=== PATIENT | male | born 1940 | race Caucasian/White ===

== ENCOUNTER 2016-04-14 11:27 | Inpatient (IN) | payer MEDICARE ==
[2016-04-14] MEDS ORDERED: IPRATROPIUM-ALBUTEROL 3 ML NEB INHALATION STA (12:41)
[2016-04-14 13:02] LABS: Basophils % (A) 0 %; CH 32.4; CHCM 34.4; Eosinophils % (A) 0 %; HCT 41.7 % (39.0-53.0); HDW 2.87; HGB 14.2 gm/dL (13.0-17.5); Luc # (Auto) 0.13; Luc % (Auto) 1; Lymphocytes # (A) 0.5 k/uL (1.0-4.8); Lymphocytes % (A) 3 %; MCH 32.2 pg (25.0-35.0); MCV 94.8 fL (80.0-100.0); Mean Platelet Volume 7.1; Monocytes # (A) 0.6 k/uL (0-1.0); Monocytes % (A) 4 %; Neutrophils # (A) 14.6 k/uL (1.3-7.7); Neutrophils % (A) 92 %; RDW 14.3 % (11.5-15.5); WBC 15.9 k/uL (3.8-10.6); WBC (Perox) 16.64
[2016-04-14 13:11] LABS: INR 0.9 (<1.1); Prothrombin Time 9.6 sec (9.0-12.0)
[2016-04-14 13:14] LABS: ALT 47 U/L (21-72); AST 47 U/L (17-59); Alkaline Phosphatase 76 U/L (38-126); Anion Gap 15 mmol/L; Blood Urea Nitrogen 29 mg/dL (9-20); Calcium 9.5 mg/dL (8.4-10.2); Carbon Dioxide 26 mmol/L (22-30); Chloride 107 mmol/L (98-107); Glucose 133 mg/dL (74-99); Magnesium 2.4 mg/dL (1.6-2.3); Non-African American GFR(MDRD) 54 (>60 ml/min/1.73 sqM); Potassium 3.7 mmol/L (3.5-5.1); Sodium 148 mmol/L (137-145); Total Bilirubin 0.4 mg/dL (0.2-1.3)
[2016-04-14] MEDS ORDERED: DEXAMETHASONE SOD PHOSPHATE 10 MG/ML 1 ML VIAL IV STA (13:15)
--- NOTE | 2016-04-14 13:15 | ED ---
General Adult HPI - General Chief complaint: Shortness of Breath Stated complaint: ROGER Time Seen by Provider: 04/14/16 12:37 Source: patient, RN notes reviewed Mode of arrival: ambulatory - History of Present Illness Initial comments: Patient 76-year-old male who presents emergency room today with chief complaint of increased cough congestion over the last 5 days. Patient does admit to positive sputum production. Doesn't that he follow-up with family doctor who stated that he thought he should be admitted. He states he thought it is feeling better at home but symptoms been increasing again over the last day. Patient does admit that he tries breathing treatments at home with little relief the symptoms at this time. She is not on any oxygen. Patient denies any other complaints or symptoms currently. Patient denies any recent fever, chills, shortness of breath, chest pain, back pain, abdominal pain, nausea or vomiting, numbness or tingling, dysuria or hematuria, constipation or diarrhea, headaches or visual changes, or any other complaints. - Related Data Home Medications Medication Instructions Recorded Confirmed Levothyroxine Sodium [Synthroid] 50 mcg PO DAILY 01/11/14 04/14/16 Simvastatin [Zocor] 5 mg PO DAILY 01/11/14 04/14/16 Terazosin HCl [Hytrin] 10 mg PO HS 01/11/14 04/14/16 amLODIPine BESYLATE [Norvasc] 10 mg PO DAILY 01/11/14 04/14/16 Hydrocodone/Acetaminophen [[place] 1 tab PO Q6HR PRN 01/25/14 04/14/16 5-325] Albuterol Inhaler [Ventolin Hfa 1 - 2 puff INHALATION RT-Q6H PRN 04/14/16 Inhaler] Amoxic-Pot Clav 875-125Mg 1 tab PO Q12HR 04/14/16 04/14/16 [Augmentin 875-125] Budesonide/Formoterol Fumarate 2 puff INHALATION RT-BID 04/14/16 04/14/16 [Symbicort 160-4.5 Mcg Inhaler] Finasteride [Proscar] 5 mg PO DAILY 04/14/16 04/14/16 Ipratropium-Albuterol Nebulize 3 ml INHALATION RT-QID PRN 01/01/17 01/01/17 [Duoneb 0.5 mg-3 mg/3 ml Soln] Methocarbamol [Robaxin] 1,000 mg PO QID PRN 04/14/16 04/14/16 Tiotropium 18 Mcg/Puff [Spiriva] 1 cap INHALATION RT-DAILY 04/14/16 04/14/16 Allergies Allergy/AdvReac Type Severity Reaction Status Date / Time methylprednisolone sodium Allergy Rash/Hives Verified 04/14/16 12:31 succinate [From Solu-Medrol] prednisone Allergy Rash/Hives Verified 04/14/16 12:31 Sulfa (Sulfonamide Allergy Rash/Hives Verified 04/14/16 12:31 Antibiotics) Review of Systems ROS Statement: Those systems with pertinent positive or pertinent negative responses have been documented in the HPI. ROS Other: All systems not noted in ROS Statement are negative. Past Medical History Past Medical History: Cancer, COPD, Hypertension, Thyroid Disorder Additional Past Medical History / Comment(s): LARYNX CANCER-HAD RADIATION TREATMENT, EMPHYSEMA History of Any Multi-Drug Resistant Organisms: None Reported Past Surgical History: Appendectomy, Back Surgery Additional Past Surgical History / Comment(s): SKIN BIOSPY Past Anesthesia/Blood Transfusion Reactions: No Reported Reaction Past Psychological History: No Psychological Hx Reported Additional Psychological History / Comment(s): , lives in the family home with his daughter and her 3 children. He is retired from [employer]. He apparently is still an ongoing tobacco user approximately half pack per day which is decreased from 3 packs per day when he was younger. Denies a history of excessive alcohol use or recreational drug use. 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 No one in the family home is currently ill. There are no pets in the home. Smoking Status: Current every day smoker Past Alcohol Use History: Daily Past Drug Use History: None Reported - Past Family History Father Additional Family Medical History / Comment(s): at a young age from a hreat attack Mother Additional Family Medical History / Comment(s): had heart disease Sister(s) Family Medical History: Cancer General Exam - General Exam Comments Initial Comments: General: The patient is awake and alert, in no distress, and does not appear acutely ill. Eye: Pupils are equal, round and reactive to light, extra-ocular movements are intact. No nystagmus. There is normal conjunctiva bilaterally. No signs of icterus. Ears, nose, mouth and throat: There are moist mucous membranes and no oral lesions. Neck: The neck is supple, there is no tenderness or JVD. Cardiovascular: There is a regular rate and rhythm. No murmur, rub or gallop is appreciated. Respiratory: Decreased sounds with expiratory wheeze bilaterally. respirations are non-labored, breath sounds are equal. No stridor, rales, or rhonchi. Gastrointestinal: Soft, non-distended, non-tender abdomen without masses or organomegaly noted. There is no rebound or guarding present. No CVA tenderness. Bowel sounds are unremarkable. Musculoskeletal: Normal ROM, no tenderness. Strength 5/5. Sensation intact. Pulses equal bilaterally 2+. Neurological: A&O x 3. CN II-XII intact, There are no obvious motor or sensory deficits. Coordination appears grossly intact. Speech is normal. Skin: Skin is warm and dry and no rashes or lesions are noted. Psychiatric: Cooperative, appropriate mood & affect, normal judgment. Course Vital Signs 04/14/16 04/14/16 04/14/16 12:05 12:41 12:48 Temperature 98.3 F Pulse Rate 92 91 94 Respiratory 18 20 Rate Blood Pressure 134/63 154/67 O2 Sat by Pulse 96 97 Oximetry 04/14/16 04/14/16 04/14/16 13:00 13:43 14:50 Temperature 97.3 F L Pulse Rate 94 86 88 Respiratory 18 18 Rate Blood Pressure 139/60 140/63 O2 Sat by Pulse 97 94 L Oximetry EKG Findings - EKG Comments: EKG Findings:: EKG performed at 1228: A 12-lead EKG was performed and interpreted by me as showing the following: Rate is 92, and rhythm is normal sinus. There are normal QRS complexes and normal R-wave progression. ST segments have no elevation or depression, and OR segments appear normal. Medical Decision Making - Medical Decision Making Patient reexamined at this time shows no signs of distress. Does admit that he feels better after breathing treatment. Pulse ox 92% on room air on arrival. Patient currently on 2 L of oxygen with saturation of 96%. Patient chest x-ray reviewed no pneumonia. Does have 15,000 white count. He admitted to the hospital for continued steroids and breathing treatments. - Lab Data Result diagrams: 04/14/16 12:40 04/14/16 12:40 Lab Results 04/14/16 04/14/16 04/14/16 Range/Units 12:40 12:40 12:40 WBC 15.9 H (3.8-10.6) k/uL RBC 4.40 (4.30-5.90) m/uL Hgb 14.2 (13.0-17.5) gm/dL Hct 41.7 (39.0-53.0) % MCV 94.8 (80.0-100.0) fL MCH 32.2 (25.0-35.0) pg MCHC 34.0 (31.0-37.0) g/dL RDW 14.3 (11.5-15.5) % Plt Count 217 (150-450) k/uL Neutrophils % 92 % Lymphocytes % 3 % Monocytes % 4 % Eosinophils % 0 % Basophils % 0 % Neutrophils # 14.6 H (1.3-7.7) k/uL Lymphocytes # 0.5 L (1.0-4.8) k/uL Monocytes # 0.6 (0-1.0) k/uL Eosinophils # 0.0 (0-0.7) k/uL Basophils # 0.0 (0-0.2) k/uL PT (9.0-12.0) sec INR (<1.1) APTT (22.0-30.0) sec Sodium 148 H (137-145) mmol/L Potassium 3.7 (3.5-5.1) mmol/L Chloride 107 (98-107) mmol/L Carbon Dioxide 26 (22-30) mmol/L Anion Gap 15 mmol/L BUN 29 H (9-20) mg/dL Creatinine 1.30 H (0.66-1.25) mg/dL Est GFR (MDRD) Af Amer >60 (>60 ml/min/1.73 sqM) Est GFR (MDRD) Non-Af 54 (>60 ml/min/1.73 sqM) Glucose 133 H (74-99) mg/dL Plasma Lactic Acid Joseph (0.7-2.0) mmol/L Calcium 9.5 (8.4-10.2) mg/dL Magnesium 2.4 H (1.6-2.3) mg/dL Total Bilirubin 0.4 (0.2-1.3) mg/dL AST 47 (17-59) U/L ALT 47 (21-72) U/L Alkaline Phosphatase 76 (38-126) U/L Total Creatine Kinase 400 H (55-170) U/L CK-MB (CK-2) 15.5 H* (0.0-2.4) ng/mL CK-MB (CK-2) Rel Index 3.9 Troponin I <0.012 (0.000-0.034) ng/mL NT-Pro-B Natriuret Pep pg/mL Total Protein 7.0 (6.3-8.2) g/dL Albumin 4.3 (3.5-5.0) g/dL 04/14/16 04/14/16 04/14/16 Range/Units 12:40 12:40 12:40 WBC (3.8-10.6) k/uL RBC (4.30-5.90) m/uL Hgb (13.0-17.5) gm/dL Hct (39.0-53.0) % MCV (80.0-100.0) fL MCH (25.0-35.0) pg MCHC (31.0-37.0) g/dL RDW (11.5-15.5) % Plt Count (150-450) k/uL Neutrophils % % Lymphocytes % % Monocytes % % Eosinophils % % Basophils % % Neutrophils # (1.3-7.7) k/uL Lymphocytes # (1.0-4.8) k/uL Monocytes # (0-1.0) k/uL Eosinophils # (0-0.7) k/uL Basophils # (0-0.2) k/uL PT 9.6 (9.0-12.0) sec INR 0.9 (<1.1) APTT 24.0 (22.0-30.0) sec Sodium (137-145) mmol/L Potassium (3.5-5.1) mmol/L Chloride (98-107) mmol/L Carbon Dioxide (22-30) mmol/L Anion Gap mmol/L BUN (9-20) mg/dL Creatinine (0.66-1.25) mg/dL Est GFR (MDRD) Af Amer (>60 ml/min/1.73 sqM) Est GFR (MDRD) Non-Af (>60 ml/min/1.73 sqM) Glucose (74-99) mg/dL Plasma Lactic Acid Joseph 1.7 (0.7-2.0) mmol/L Calcium (8.4-10.2) mg/dL Magnesium (1.6-2.3) mg/dL Total Bilirubin (0.2-1.3) mg/dL AST (17-59) U/L ALT (21-72) U/L Alkaline Phosphatase (38-126) U/L Total Creatine Kinase (55-170) U/L CK-MB (CK-2) (0.0-2.4) ng/mL CK-MB (CK-2) Rel Index Troponin I (0.000-0.034) ng/mL NT-Pro-B Natriuret Pep 229 pg/mL Total Protein (6.3-8.2) g/dL Albumin (3.5-5.0) g/dL Disposition Clinical Impression: COPD exacerbation Disposition: ADMITTED IP TO THIS HOSP Condition: Good Time of Disposition: 15:11
[2016-04-14 13:31] LABS: Creatine Kinase 400 U/L (55-170)
[2016-04-14 13:44] LABS: Troponin I <0.012 ng/mL (0.000-0.034)
[2016-04-14 13:49] LABS: Creatine Kinase MB 15.5 ng/mL (0.0-2.4)
--- NOTE | 2016-04-14 14:08 | XR ---
EXAMINATION TYPE: XR chest 2V DATE OF EXAM: 04/14/2016 1:21 PM COMPARISON: 01/13/2016 HISTORY: Short of breath TECHNIQUE: Frontal and lateral views of the chest are obtained. FINDINGS: Heart and mediastinum are normal. Lungs are clear of consolidation. There are no hilar mas ses. There is a calcified granuloma in the right lower lobe. There are chest leads. Bony thorax is in tact IMPRESSION: No active cardiopulmonary disease. No change.
[2016-04-14] MEDS ORDERED: SODIUM CHLORIDE 0.9% 1,000 ML IV ONE (15:13)
[2016-04-14] MEDS ORDERED: DEXAMETHASONE SOD PHOSPHATE 4 MG/ML 1 ML VIAL IV PRN (15:15)
[2016-04-14] MEDS: IPRATROPIUM-ALBUTEROL 3 ML NEB INHALATION PRN (16:38)
[2016-04-14 17:52] VITALS: BMI 24.2
[2016-04-14] MEDS ORDERED: HYDROcodone/APAP 10-325MG 1 EACH TAB PO PRN (18:18)
[2016-04-14] MEDS ORDERED: METHOCARBAMOL 500 MG TAB PO PRN (18:18)
[2016-04-14] MEDS: SYMBICORT 160-4.5 MCG INHALER INHALATION SCH (19:19)
[2016-04-14] MEDS: IPRATROPIUM-ALBUTEROL 3 ML NEB INHALATION SCH (19:19)
[2016-04-14] MEDS ORDERED: INFLUENZA VACCINE (3YR+) 60 MCG/0.5 ML SYRINGE IM ONE (19:29)
[2016-04-14] MEDS ORDERED: PNEUMOCOCCAL VACC-PNEUMOVAX 23 25 MCG/0.5 ML VIAL IM ONE (19:35)
[2016-04-14 20:23] LABS: Glucose,Whole Blood 184 mg/dL (75-99)
[2016-04-14] MEDS: DEXAMETHASONE SOD PHOSPHATE 4 MG/ML 1 ML VIAL IV SCH ×2 (21:22→23:11)
[2016-04-14] MEDS: HEPARIN SODIUM,PORCINE 5,000 UNIT/ML 1 ML VIAL SQ SCH (21:25)
[2016-04-14] MEDS: INSULIN LISPRO (humaLOG) 300 UNIT/3 ML VIAL SQ SCH (21:26)
[2016-04-14] MEDS: TERAZOSIN 5 MG CAP PO SCH (21:26)
[2016-04-14] MEDS: AMOXIC-POT CLAV 875-125MG 1 EACH TAB PO SCH (21:46)
[2016-04-15] MEDS: DEXAMETHASONE SOD PHOSPHATE 4 MG/ML 1 ML VIAL IV SCH ×4 (05:16→23:21)
[2016-04-15] MEDS: LEVOTHYROXINE 50 MCG TAB PO SCH (05:16)
[2016-04-15] MEDS: SYMBICORT 160-4.5 MCG INHALER INHALATION SCH ×2 (05:40→20:10)
[2016-04-15] MEDS: IPRATROPIUM-ALBUTEROL 3 ML NEB INHALATION SCH ×5 (05:40→23:33)
[2016-04-15] MEDS ORDERED: PNEUMOCOCCAL VACC-PNEUMOVAX 23 25 MCG/0.5 ML VIAL IM ONE (06:45)
[2016-04-15 07:37] LABS: Glucose,Whole Blood 112 mg/dL (75-99)
[2016-04-15 07:57] LABS: ALT 49 U/L (21-72); AST 48 U/L (17-59); Alkaline Phosphatase 64 U/L (38-126); Anion Gap 13 mmol/L; Blood Urea Nitrogen 25 mg/dL (9-20); Calcium 9.2 mg/dL (8.4-10.2); Carbon Dioxide 28 mmol/L (22-30); Chloride 108 mmol/L (98-107); Glucose 115 mg/dL (74-99); Non-African American GFR(MDRD) >60 (>60 ml/min/1.73 sqM); Potassium 4.3 mmol/L (3.5-5.1); Sodium 149 mmol/L (137-145); Total Bilirubin 0.3 mg/dL (0.2-1.3); Total Protein 6.3 g/dL (6.3-8.2)
[2016-04-15 08:10] LABS: Basophils % (A) 0 %; CH 32.3; CHCM 33.7; Eosinophils % (A) 0 %; HCT 41.3 % (39.0-53.0); HDW 2.89; HGB 13.6 gm/dL (13.0-17.5); Luc # (Auto) 0.13; Luc % (Auto) 1; Lymphocytes # (A) 0.6 k/uL (1.0-4.8); Lymphocytes % (A) 4 %; MCH 31.8 pg (25.0-35.0); MCHC 32.9 g/dL (31.0-37.0); MCV 96.6 fL (80.0-100.0); Mean Platelet Volume 7.8; Monocytes # (A) 0.9 k/uL (0-1.0); Monocytes % (A) 6 %; Neutrophils # (A) 13.1 k/uL (1.3-7.7); Neutrophils % (A) 89 %; RBC 4.28 m/uL (4.30-5.90); RDW 14.6 % (11.5-15.5); WBC 14.7 k/uL (3.8-10.6); WBC (Perox) 14.36
[2016-04-15] MEDS: IPRATROPIUM-ALBUTEROL 3 ML NEB INHALATION PRN ×4 (08:20→20:11)
[2016-04-15] MEDS: FINASTERIDE 5 MG TAB PO SCH (08:37)
[2016-04-15] MEDS: amLODIPine 10 MG TAB PO SCH (08:37)
[2016-04-15] MEDS: AMOXIC-POT CLAV 875-125MG 1 EACH TAB PO SCH ×2 (08:37→20:25)
[2016-04-15] MEDS: HEPARIN SODIUM,PORCINE 5,000 UNIT/ML 1 ML VIAL SQ SCH ×2 (08:38→20:25)
[2016-04-15] MEDS: ATORVASTATIN 10 MG TAB PO SCH (08:38)
[2016-04-15 11:29] LABS: Glucose,Whole Blood 122 mg/dL (75-99)
[2016-04-15 12:25] LABS: Hemoglobin A1C 4.9 % (4.2-6.1)
[2016-04-15] MEDS: ALPRAZolam 0.25 MG TAB PO PRN ×2 (12:46→20:25)
[2016-04-15] MEDS: INSULIN LISPRO (humaLOG) 300 UNIT/3 ML VIAL SQ SCH ×3 (12:47→20:21)
[2016-04-15] MEDS: PANTOPRAZOLE 40 MG TABLET PO SCH (14:43)
--- NOTE | 2016-04-15 16:13 | P.CNPUL ---
History of Present Illness Consult date: 04/15/16 Requesting physician: Jesús Au Reason for consult: COPD Chief complaint: Shortness of breath History of present illness: This is a 76-year-old white male with severe COPD, however the patient is not O2 dependent, and not prednisone dependent. Patient normally follows up with Dr. Boo regarding his severe end-stage COPD. Patient presented to the ER complaining of shortness of breath, cough, congestion over the last 5 days. Cough is productive with slightly yellow phlegm. Patient has been using his bronchodilators including his updraft treatments at home quite frequently, but no relief. After evaluation in the ER, chest x-ray showed no evidence of infiltrate, patient was admitted with the impression of acute exacerbation of COPD and this consult was initiated. Patient denies any fever, no chills, no hemoptysis, no chest pain. No headaches no blurred vision no dizziness. No nausea no vomiting no abdominal pain. No melena no hematemesis is no dysuria frequency or urgency. Patient is ALLERGIC to methylprednisolone and prednisone , however he is able to take Decadron, and when I was called about this patient , I recommended Decadron instead of methylprednisolone. Today he seems to be doing slightly better, but continues to have significant shortness of breath intermittently related to his COPD. Review of Systems 12 point review of systems were obtained, please refer to pertinent positives and negatives in HPI Past Medical History Past Medical History: Cancer, COPD, Hypertension, Thyroid Disorder Additional Past Medical History / Comment(s): LARYNX CANCER-HAD RADIATION TREATMENT, EMPHYSEMA History of Any Multi-Drug Resistant Organisms: None Reported Past Surgical History: Appendectomy, Back Surgery Additional Past Surgical History / Comment(s): SKIN BIOSPY Past Anesthesia/Blood Transfusion Reactions: No Reported Reaction Past Psychological History: No Psychological Hx Reported Additional Psychological History / Comment(s): , lives in the family home with his daughter and her 3 children. He is retired from [employer]. He apparently is still an ongoing tobacco user approximately half pack per day which is decreased from 3 packs per day when he was younger. Denies a history of excessive alcohol use or recreational drug use. 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 No one in the family home is currently ill. There are no pets in the home. Smoking Status: Current every day smoker Past Alcohol Use History: Daily Past Drug Use History: None Reported - Past Family History Father Additional Family Medical History / Comment(s): at a young age from a hreat attack Mother Additional Family Medical History / Comment(s): had heart disease Sister(s) Family Medical History: Cancer Medications and Allergies Home Medications Medication Instructions Recorded Confirmed Type Levothyroxine Sodium [Synthroid] 50 mcg PO DAILY 01/11/14 04/14/16 History Simvastatin [Zocor] 5 mg PO DAILY 01/11/14 04/14/16 History Terazosin HCl [Hytrin] 10 mg PO HS 01/11/14 04/14/16 History amLODIPine BESYLATE [Norvasc] 10 mg PO DAILY 01/11/14 04/14/16 History Albuterol Inhaler [Ventolin Hfa 1 - 2 puff INHALATION RT-Q6H PRN 04/14/16 History Inhaler] Amoxic-Pot Clav 875-125Mg 1 tab PO Q12HR 04/14/16 04/14/16 History [Augmentin 875-125] Budesonide/Formoterol Fumarate 2 puff INHALATION RT-BID 04/14/16 04/14/16 History [Symbicort 160-4.5 Mcg Inhaler] Finasteride [Proscar] 5 mg PO DAILY 04/14/16 04/14/16 History HYDROcodone/APAP 10-325MG [[place] 1 tab PO Q6H PRN 04/14/16 04/14/16 History 10-325] Ipratropium-Albuterol Nebulize 3 ml INHALATION RT-QID PRN 04/14/16 04/14/16 History [Duoneb 0.5 mg-3 mg/3 ml Soln] Methocarbamol [Robaxin] 1,000 mg PO QID PRN 04/14/16 04/14/16 History Tiotropium 18 Mcg/Puff [Spiriva] 1 cap INHALATION RT-DAILY 04/14/16 04/14/16 History Allergies Allergy/AdvReac Type Severity Reaction Status Date / Time methylprednisolone sodium Allergy Rash/Hives Verified 04/14/16 17:34 succinate [From Solu-Medrol] prednisone Allergy Rash/Hives Verified 04/14/16 17:34 Sulfa (Sulfonamide Allergy Rash/Hives Verified 04/14/16 17:34 Antibiotics) Physical Exam Vitals: Vital Signs Temp Pulse Pulse Resp BP Pulse Ox 04/15/16 15:52 100 04/15/16 15:39 100 04/15/16 13:49 97.3 F L 96 17 170/70 93 L 04/15/16 12:58 100 04/15/16 12:43 98 04/15/16 10:56 108 H 04/15/16 10:43 104 H 04/15/16 08:45 108 H 04/15/16 08:20 112 H 04/15/16 07:10 97.5 F L 90 137/65 96 04/15/16 05:52 108 H 04/15/16 05:41 104 H 04/15/16 03:05 16 04/15/16 02:23 98.6 F 79 16 131/67 100 04/15/16 00:00 16 04/14/16 20:00 97.4 F L 93 16 143/65 96 04/14/16 19:33 96 04/14/16 19:20 96 04/14/16 17:01 90 04/14/16 16:40 90 04/14/16 16:21 97.6 F 94 19 164/90 94 L Intake and Output 04/15/16 04/15/16 04/15/16 06:59 14:59 22:59 Intake Total 420 Output Total 100 Balance 320 Intake: Intake, IV Titration 300 Amount Sodium Chloride 0.9% 1, 300 000 ml @ 50 mls/hr IV . Q20H ONE Rx#:[id number] Oral 120 Output: Urine 100 Other: Voiding Method Toilet # Voids 1 3 Physical Exam: Revealed a 76-year-old white male in mild distress secondary to COPD. HEENT:[Neck is supple.] [No neck masses.] [No thyromegaly.] [No JVD.] Chest: [Diminished breath sound bilaterally, some wheezing on forced expiratory maneuver bilaterally.] Cardiac Exam: [Normal S1 and S2, no S3 gallop, no murmur.] Abdomen: [Soft, nontender, no megaly, no rebound, no guarding, normal bowel sounds.] Extremities: [No clubbing, no edema, no cyanosis.] Neurological Exam: [No focal neurologic deficit.] Results - Laboratory Findings CBC and BMP: 04/15/16 07:09 04/15/16 07:09 PT/INR, D-dimer PT 9.6 sec (9.0-12.0) 04/14/16 12:40 INR 0.9 (<1.1) 04/14/16 12:40 Abnormal lab findings: Abnormal Labs 04/14/16 04/15/16 04/15/16 20:22 07:09 07:09 WBC 14.7 H RBC 4.28 L Neutrophils # 13.1 H Lymphocytes # 0.6 L Sodium 149 H Chloride 108 H BUN 25 H Glucose 115 H POC Glucose (mg/dL) 184 H 04/15/16 04/15/16 07:14 11:27 WBC RBC Neutrophils # Lymphocytes # Sodium Chloride BUN Glucose POC Glucose (mg/dL) 112 H 122 H - Diagnostic Findings Chest x-ray: image reviewed (No evidence of active disease, chest x-ray is consistent with severe COPD, emphysema.) Assessment and Plan Plan: Impression: Acute exacerbation of COPD and purulent tracheobronchitis. Multiple comorbidities including COPD, essential hypertension, hypothyroidism, hyperlipidemia, and history of laryngeal cancer requiring radiation treatment. Recommendation: I fully agree with the present treatment plan, continue Decadron for now, continue the rest of the bronchodilators including DuoNeb, Symbicort, and we'll continue to follow closely. Continue antibiotics empirically. Time with Patient: Greater than 30
[2016-04-15 16:29] LABS: Glucose,Whole Blood 118 mg/dL (75-99)
[2016-04-15] MEDS ORDERED: TIOTROPIUM 18 MCG/PUFF INHALER INHALATION SCH (20:00)
[2016-04-15 20:06] LABS: Glucose,Whole Blood 120 mg/dL (75-99)
[2016-04-15] MEDS: TERAZOSIN 5 MG CAP PO SCH (20:25)
--- NOTE | 2016-04-15 20:50 | HP ---
DATE OF ADMISSION: 04/14/2016 This is a 76-year-old male patient who presented to the emergency department with increasing shortness of breath. He is a known end-stage COPD and follows with Dr. Boo as an outpatient. He states that he has had increasing shortness of breath and cough over the last 5 to 6 days with yellow sputum production. Patient has been started on updraft treatments, continued on Spiriva and is currently on Decadron because he is allergic to other steroids. He continues to be short of breath. He is seen sitting up in bed over the side of the bed in a tripod position. He is not in acute distress at this time but is short of breath. Respiratory has been called to administer additional breathing treatments. He has been continued on IV antibiotic therapy. Apparently the gentleman continues to smoke despite having severe chronic obstructive pulmonary disease. He is oxygen dependent at home. His oxygen saturations are in mid to high 90s on 2 liters of oxygen via nasal cannula. REVIEW OF SYSTEMS: Patient denies seizures, syncope, or loss of consciousness. Denies diplopia or visual disturbances. Denies dysphagia, states shortness of breath, cough and wheeze. Denies chest pain, angina, palpitations. Denies abdominal pain, nausea, vomiting, constipation, or diarrhea. Denies dysuria or urinary retention. Denies fever or chills. PAST MEDICAL HISTORY: 1. End-stage chronic obstructive pulmonary disease. 2. Hypertension. 3. Laryngeal cancer, status post radiation therapy. 4. Hypothyroidism. PAST SURGICAL HISTORY: Back surgery, appendectomy, resection of skin cancer. FAMILY HISTORY: Patient is extremely short of breath and not able to give much family history. His father did have hypertension. Both his parents are . SOCIAL HISTORY: The patient currently smokes 1/2 pack per day. Denies ETOH or illicit drug use. Has oxygen at home. ALLERGIES: SOLU-MEDROL, PREDNISONE AND SULFA. Home medications: 1. Norvasc 10 mg daily. 2. Spiriva 18 mcg grams inhalation daily. 3. Hytrin 10 mg at bedtime. 4. Zocor 5 mg daily. 5. Robaxin 1000 mg q.i.d. p.r.n. 6. Synthroid 50 mcg p.o. daily. 7. DuoNeb q.i.d. and p.r.n. 8. Ventolin inhaler 1 to 2 puffs q.6 hours p.r.n. 9. [place] a 10/325, 1 tab p.o. every 6 hours p.r.n. 10. Proscar 5 mg daily. 11. Symbicort 100/4.5 mcg b.i.d. 12. Amoxicillin 875 q.12 hours. PHYSICAL EXAMINATION: VITAL SIGNS: Temperature is 97.5, heart rate 90, respiratory rate is 20, blood pressure is 137/55, pulse oximetry is 93% on 2 liters via nasal cannula. GENERAL: Patient is seen sitting up over the side of the bed in mild respiratory distress. HEENT: Head is normocephalic, atraumatic. Pupils equal, conjunctivae clear. NECK: Supple, no JVD. LUNGS: Diminished throughout with faint expiratory wheeze. HEART: Is regular rate and rhythm with distant heart sounds. No murmur. ABDOMEN: Soft and nontender, nondistended. Bowel sounds positive. EXTREMITIES: No lower extremity edema is noted. NEURO: Patient is alert and oriented x3. LABS: Sodium is 149, potassium 4.3, BUN is 25, creatinine 0.95. WBC count is 14.7, hemoglobin 13.6, platelet count is 227. Troponin x2 is negative. DIAGNOSTIC TESTS: Chest x-ray shows no active cardiopulmonary disease. An EKG shows a sinus tachycardia. IMPRESSION: 1. Acute exacerbation of chronic obstructive pulmonary disease. Continue with updraft treatments. We will increase DuoNeb q.4 hours. Patient has been continued on Symbicort. Spiriva is on hold. He is currently on Decadron because he is ALLERGIC TO SOLU-MEDROL. We will await pulmonology is evaluation and further recommendations. 2. Hypertension. Continue with Hytrin. 3. Benign prostatic hypertrophy. Continue Proscar. 4. Chronic pain, continue with [place] as needed. 5. Hypothyroidism. Continue Synthroid. 6. Lower back pain, status post surgery, continue with Robaxin and [place] as needed. 7. Leukocytosis secondary to current infection. Continue with antibiotic therapy. 8. Hypernatremia present on admission. We will stop saline infusion. Repeat labs in the morning. 9. Hyperglycemia, steroid-induced. Continue with Accu-Cheks and sliding scale. 10. Gastrointestinal prophylaxis with Prilosec and DVT prophylaxis with subcutaneous heparin. Patient will be admitted to the inpatient status and will require 2 to 3 night stay.
[2016-04-16] MEDS: IPRATROPIUM-ALBUTEROL 3 ML NEB INHALATION SCH ×3 (03:52→11:22)
[2016-04-16] MEDS: ALPRAZolam 0.25 MG TAB PO PRN (04:33)
[2016-04-16] MEDS: LEVOTHYROXINE 50 MCG TAB PO SCH (05:30)
[2016-04-16 07:02] LABS: Glucose,Whole Blood 111 mg/dL (75-99)
[2016-04-16 07:22] VITALS: BP 174/80; TEMP 98.1
[2016-04-16] MEDS: SYMBICORT 160-4.5 MCG INHALER INHALATION SCH (07:25)
[2016-04-16 07:59] LABS: Basophils % (A) 0 %; CHCM 33.4; Eosinophils % (A) 0 %; HCT 42.3 % (39.0-53.0); HGB 13.8 gm/dL (13.0-17.5); Luc # (Auto) 0.15; Luc % (Auto) 1; Lymphocytes # (A) 0.8 k/uL (1.0-4.8); Lymphocytes % (A) 8 %; MCH 31.5 pg (25.0-35.0); MCHC 32.6 g/dL (31.0-37.0); MCV 96.5 fL (80.0-100.0); Mean Platelet Volume 7.6; Monocytes % (A) 9 %; Neutrophils # (A) 8.9 k/uL (1.3-7.7); Neutrophils % (A) 82 %; RBC 4.38 m/uL (4.30-5.90); RDW 14.3 % (11.5-15.5); WBC 10.9 k/uL (3.8-10.6); WBC (Perox) 11.16
[2016-04-16 08:14] LABS: Anion Gap 9 mmol/L; Blood Urea Nitrogen 24 mg/dL (9-20); Carbon Dioxide 32 mmol/L (22-30); Chloride 105 mmol/L (98-107); Glucose 106 mg/dL (74-99); Non-African American GFR(MDRD) >60 (>60 ml/min/1.73 sqM); Potassium 4.4 mmol/L (3.5-5.1); Sodium 146 mmol/L (137-145)
[2016-04-16] MEDS: DEXAMETHASONE SOD PHOSPHATE 4 MG/ML 1 ML VIAL IV SCH (08:52)
[2016-04-16] MEDS: amLODIPine 10 MG TAB PO SCH (08:53)
[2016-04-16] MEDS: AMOXIC-POT CLAV 875-125MG 1 EACH TAB PO SCH (08:53)
[2016-04-16] MEDS: PANTOPRAZOLE 40 MG TABLET PO SCH (08:53)
[2016-04-16] MEDS: ATORVASTATIN 10 MG TAB PO SCH (08:53)
[2016-04-16] MEDS: HEPARIN SODIUM,PORCINE 5,000 UNIT/ML 1 ML VIAL SQ SCH (08:53)
[2016-04-16] MEDS: FINASTERIDE 5 MG TAB PO SCH (08:53)
[2016-04-16] MEDS: INSULIN LISPRO (humaLOG) 300 UNIT/3 ML VIAL SQ SCH ×2 (08:54→11:52)
[2016-04-16] MEDS: IPRATROPIUM-ALBUTEROL 3 ML NEB INHALATION PRN ×2 (09:12→13:35)
[2016-04-16 09:43] VITALS: RESP 14
[2016-04-16 11:30] LABS: Glucose,Whole Blood 125 mg/dL (75-99)
[2016-04-16] MEDS ORDERED: PNEUMOCOCCAL VACC-PNEUMOVAX 23 25 MCG/0.5 ML VIAL IM ONE (12:00)
[2016-04-16] MEDS ORDERED: INFLUENZA VACCINE (3YR+) 60 MCG/0.5 ML SYRINGE IM ONE (12:00)
[2016-04-16 13:48] VITALS: PULSE 100
--- NOTE | 2016-04-16 14:58 | P.PN ---
Subjective Progress note dated 04/16/2016 This is a 76-year-old gentleman seen by Dr. Mclaughlin consultation yesterday for a COPD exacerbation. He is doing well is going to be discharged home today. We saw him on the third floor. He sees Dr. Boo for his COPD. Doing much better. His complaints include shortness of breath cough check chest congestion and phlegm production. Again doing much better. Objective - Vital Signs Vital signs: Vital Signs Temp 98.1 F 04/16/16 07:00 Pulse 100 04/16/16 13:47 Resp 14 04/16/16 08:00 BP 174/80 04/16/16 07:00 Pulse Ox 92 L 04/16/16 07:00 Intake & Output 04/15/16 04/16/16 04/16/16 18:59 06:59 18:59 Intake Total 900 120 Output Total 100 950 Balance 800 -950 120 Intake: Intake, IV Titration 300 Amount Sodium Chloride 0.9% 1, 300 000 ml @ 50 mls/hr IV . Q20H ONE Rx#:[id number] Oral 600 120 Output: Urine 100 950 Other: Voiding Method Toilet Urinal # Voids 3 1 - Exam No acute distress, oriented 3. Sitting at the bedside ready to be discharged. Doing a breathing treatment. HEENT examination is grossly unremarkable. Mucous membranes are moist. There are no oral lesions. Neck supple. Full range of motion. No adenopathy. Cardiovascular examination reveals regular rhythm rate. S1-S2 normal. No S3- S4 or murmur. Lungs reveal relatively clear breath sounds. A few scattered rhonchi. No wheezes. Slight prolongation. Abdomen soft bowel sounds are heard. Extremities are intact. - Labs CBC & Chem 7: 04/16/16 07:27 04/16/16 07:27 Labs: Abnormal Lab Results - Last 24 Hours (Table) 04/15/16 04/15/16 04/16/16 Range/Units 16:21 20:02 06:57 WBC (3.8-10.6) k/uL Neutrophils # (1.3-7.7) k/uL Lymphocytes # (1.0-4.8) k/uL Sodium (137-145) mmol/L Carbon Dioxide (22-30) mmol/L BUN (9-20) mg/dL Glucose (74-99) mg/dL POC Glucose (mg/dL) 118 H 120 H 111 H (75-99) mg/dL 04/16/16 04/16/16 04/16/16 Range/Units 07:27 07:27 11:22 WBC 10.9 H (3.8-10.6) k/uL Neutrophils # 8.9 H (1.3-7.7) k/uL Lymphocytes # 0.8 L (1.0-4.8) k/uL Sodium 146 H (137-145) mmol/L Carbon Dioxide 32 H (22-30) mmol/L BUN 24 H (9-20) mg/dL Glucose 106 H (74-99) mg/dL POC Glucose (mg/dL) 125 H (75-99) mg/dL Assessment and Plan (1) Acute exacerbation of chronic obstructive airways disease Status: Acute (2) HTN (hypertension) Status: Acute (3) Hyperlipemia Status: Acute (4) Nicotine dependence Status: Acute (5) Tracheobronchitis Status: Acute Plan: Plan The patient will be discharged home today. The patient will follow up with Dr. Nathan. His primary doctor is Dr. Jacobsen. He'll also follow-up with Dr. Jacobsen. He was discharged home on the usual including a prednisone burst and taper short course of antibiotics and his usual breathing medications. Time with Patient: Less than 30
--- NOTE | 2016-04-16 16:48 | P.DS ---
Providers Date of admission: 04/14/16 15:13 Expected date of discharge: 04/16/16 Attending physician: Jesús Au Primary care physician: M[facility] Course: This is a 76-year-old white male. His primary care physician is Dr. Moy Perez and pulmonary medicine Dr. Boo. He has a past medical history of severe end-stage COPD, however the patient is not O2 dependent, and not prednisone dependent, hypothyroidism, hypertension, larynx cancer status post radiation. Patient presented to the [facility] emergency center complaining of shortness of breath, cough, congestion over the last 5 days. Cough is productive with slightly yellow phlegm. Patient has been using his bronchodilators including his updraft treatments at home quite frequently, but no relief. After evaluation in the ER, chest x-ray showed no evidence of infiltrate, patient was admitted with the impression of acute exacerbation of COPD and consult was requested with Dr. Mclaughlin. Patient denies any fever, no chills, no hemoptysis, no chest pain. No headaches no blurred vision no dizziness. No nausea no vomiting no abdominal pain. No melena no hematemesis is no dysuria frequency or urgency. Patient is ALLERGIC to methylprednisolone and prednisone, however he is able to take Decadron. Patient was treated with DuoNeb treatments, Depo-Medrol, Symbicort. The patient had improvement of his symptoms and his breathing was 75% better than on presentation. Patient was very anxious to be discharged home. Discharge diagnoses: 1. Acute exacerbation of COPD with acute purulent tracheobronchitis. 2. Hypertension. 3. Benign prostatic hypertrophy. 4. Chronic pain syndrome. 5. Hypothyroidism. 6. Lower back pain status post surgery. 7. Leukocytosis secondary to infection. 8. Hypernatremia. 9. Steroid-induced hyperglycemia. Discharge plan: Home today. Impression and plan of care have been directed as dictated by the signing physician. Joana Mcknight nurse practitioner acting as scribe for signing physician.. Cc: Dr. Moy Perez Patient Condition at Discharge: Good Plan - Discharge Summary New Discharge Prescriptions: Ipratropium-Albuterol Nebulize [Duoneb 0.5 mg-3 mg/3 ml Soln] 3 ml INHALATION RT -QID PRN #120 ampul.neb PRN Reason: Shortness Of Breath methylPREDNISolone Dose Pack [Medrol Dose Pack] 4 mg PO DIRECTED #21 package Discharge Medication List Levothyroxine Sodium [Synthroid] 50 mcg PO DAILY 01/11/14 [History] Simvastatin [Zocor] 5 mg PO DAILY 01/11/14 [History] Terazosin HCl [Hytrin] 10 mg PO HS 01/11/14 [History] amLODIPine BESYLATE [Norvasc] 10 mg PO DAILY 01/11/14 [History] Albuterol Inhaler [Ventolin Hfa Inhaler] 1 - 2 puff INHALATION RT-Q6H PRN [History] Amoxic-Pot Clav 875-125Mg [Augmentin 875-125] 1 tab PO Q12HR 04/14/16 [History] Budesonide/Formoterol Fumarate [Symbicort 160-4.5 Mcg Inhaler] 2 puff INHALATION RT-BID 04/14/16 [History] Finasteride [Proscar] 5 mg PO DAILY 04/14/16 [History] HYDROcodone/APAP 10-325MG [[place] 10-325] 1 tab PO Q6H PRN 04/14/16 [History] Methocarbamol [Robaxin] 1,000 mg PO QID PRN 04/14/16 [History] Tiotropium 18 Mcg/Puff [Spiriva] 1 cap INHALATION RT-DAILY 04/14/16 [History] Ipratropium-Albuterol Nebulize [Duoneb 0.5 mg-3 mg/3 ml Soln] 3 ml INHALATION RT -QID PRN #120 ampul.neb 04/16/16 [Rx] methylPREDNISolone Dose Pack [Medrol Dose Pack] 4 mg PO DIRECTED #21 package 04/16/16 [Rx] Follow up Appointment(s)/Referral(s): Moy Perez MD [Primary Care Provider] - 04/24/16 10:00 am Adeel Boo MD [STAFF PHYSICIAN] - 05/01/16 1:00 pm Discharge Disposition: HOME SELF-CARE
== END 2016-04-16 14:40 | disposition home or self-care (01) | DRG 191 ==
LOC: EC 11:27 → 3SUR 15:13
PROVIDERS: ADMIT Internal Medicine; ATTEND Internal Medicine
PROC: 3E0234Z Introduction of Serum, Toxoid and Vaccine into Muscle, Percutaneous Approach (ICD-10-PCS; principal; 2016-04-16)
PROC: 3E0234Z Introduction of Serum, Toxoid and Vaccine into Muscle, Percutaneous Approach (ICD-10-PCS; 2016-04-16)
DX: J44.1 Chronic obstructive pulmonary disease with (acute) exacerbation (principal); E87.0 Hyperosmolality and hypernatremia; Z99.81 Dependence on supplemental oxygen; J44.0 Chronic obstructive pulmonary disease with (acute) lower respiratory infection; D72.829 Elevated white blood cell count, unspecified; T38.0X5A Adverse effect of glucocorticoids and synthetic analogues, initial encounter; R73.9 Hyperglycemia, unspecified; J20.9 Acute bronchitis, unspecified; R00.0 Tachycardia, unspecified; E03.9 Hypothyroidism, unspecified; I10 Essential (primary) hypertension; G89.4 Chronic pain syndrome; N40.0 Benign prostatic hyperplasia without lower urinary tract symptoms; E78.5 Hyperlipidemia, unspecified; M54.5 Low back pain; F17.200 Nicotine dependence, unspecified, uncomplicated; Z92.3 Personal history of irradiation; Z85.828 Personal history of other malignant neoplasm of skin; Z82.49 Family history of ischemic heart disease and other diseases of the circulatory system; Z23 Encounter for immunization; Z88.2 Allergy status to sulfonamides; Z88.8 Allergy status to other drugs, medicaments and biological substances; Z79.891 Long term (current) use of opiate analgesic; Z79.51 Long term (current) use of inhaled steroids; Z79.899 Other long term (current) drug therapy; Z85.21 Personal history of malignant neoplasm of larynx; Z80.9 Family history of malignant neoplasm, unspecified; Z90.49 Acquired absence of other specified parts of digestive tract
CPT/HCPCS: 36415; 71020; 80048; 80053; 82550; 82553; 83036; 83605; 83735; 83880; 84484; 85025; 85610; 85730; 87040; 90686; 90732; 93005; 94640; 96374; 99285

== ENCOUNTER 2016-08-03 10:38 | Inpatient (IN) | payer MEDICARE ==
[2016-08-03] MEDS ORDERED: DEXAMETHASONE SOD PHOSPHATE 10 MG/ML 1 ML VIAL IV STA (10:56)
--- NOTE | 2016-08-03 10:56 | ED ---
SOB HPI - General Stated Complaint: Difficulty Breathing Time Seen by Provider: 08/03/16 10:38 Source: patient, family, EMS, RN notes reviewed Mode of arrival: EMS - History of Present Illness Initial Comments: This is a 76-year-old male with a history of COPD who started developing difficulty breathing over last several days but particularly bad last evening. This morning he was short of breath he did not respond to his usual medications. He was brought in by EMS for evaluation. He denies any fevers chills or sweats he does have a chronic cough. Denies any chest pain. He is ALLERGIC to most areas except for Decadron. MD Complaint: shortness of breath - Related Data Home Medications Medication Instructions Recorded Confirmed Levothyroxine Sodium [Synthroid] 50 mcg PO DAILY 01/11/14 08/03/16 Simvastatin [Zocor] 5 mg PO DAILY 01/11/14 08/03/16 Terazosin HCl [Hytrin] 10 mg PO HS 01/11/14 08/03/16 amLODIPine BESYLATE [Norvasc] 10 mg PO DAILY 01/11/14 08/03/16 Budesonide/Formoterol Fumarate 2 puff INHALATION RT-BID 04/14/16 08/03/16 [Symbicort 160-4.5 Mcg Inhaler] HYDROcodone/APAP 10-325MG [[place] 1 tab PO QID PRN 04/14/16 08/03/16 10-325] Tiotropium 18 Mcg/Puff [Spiriva] 1 cap INHALATION RT-DAILY 04/14/16 08/03/16 Dexamethasone 0.75 mg PO DAILY 08/03/16 08/03/16 Ibuprofen [Motrin] 800 mg PO TID PRN 08/03/16 08/03/16 Ipratropium/Albuterol Sulfate 1 puff INHALATION RT-QID 08/03/16 08/03/16 [Combivent Respimat Inhaler] Magnesium Oxide [Mag-Ox] 400 mg PO DAILY 08/03/16 08/03/16 Methocarbamol [Robaxin] 750 mg PO QID PRN 08/03/16 08/03/16 Montelukast [Singulair] 10 mg PO DAILY 08/03/16 08/03/16 Omeprazole 40 mg PO DAILY 08/03/16 08/03/16 Theophylline 12 Hour [Sanjeev-Dur] 100 mg PO DAILY 08/03/16 08/03/16 Allergies Allergy/AdvReac Type Severity Reaction Status Date / Time methylprednisolone sodium Allergy Rash/Hives Verified 08/03/16 12:30 succinate [From Solu-Medrol] Penicillins Allergy Unknown Verified 08/03/16 12:30 prednisone Allergy Rash/Hives Verified 08/03/16 12:30 Sulfa (Sulfonamide Allergy Rash/Hives Verified 08/03/16 12:30 Antibiotics) Review of Systems ROS Statement: Those systems with pertinent positive or pertinent negative responses have been documented in the HPI. ROS Other: All systems not noted in ROS Statement are negative. Past Medical History Past Medical History: Cancer, COPD, Hypertension, Thyroid Disorder Additional Past Medical History / Comment(s): LARYNX CANCER-HAD RADIATION TREATMENT, EMPHYSEMA History of Any Multi-Drug Resistant Organisms: None Reported Past Surgical History: Appendectomy, Back Surgery Additional Past Surgical History / Comment(s): SKIN BIOSPY Past Anesthesia/Blood Transfusion Reactions: No Reported Reaction Past Psychological History: No Psychological Hx Reported Additional Psychological History / Comment(s): , lives in the family home with his daughter and her 3 children. He is retired from [employer]. He apparently is still an ongoing tobacco user approximately half pack per day which is decreased from 3 packs per day when he was younger. Denies a history of excessive alcohol use or recreational drug use. 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 No one in the family home is currently ill. There are no pets in the home. Smoking Status: Current every day smoker Past Alcohol Use History: Daily Past Drug Use History: None Reported - Past Family History Father Additional Family Medical History / Comment(s): at a young age from a hreat attack Mother Additional Family Medical History / Comment(s): had heart disease Sister(s) Family Medical History: Cancer General Exam - General Exam Comments Initial Comments: This is a well-developed well-nourished awake alert oriented 3 male General appearance: alert, anxious, in distress Head exam: Present: atraumatic, normocephalic, normal inspection Eye exam: Present: normal appearance, PERRL, EOMI. Absent: scleral icterus, conjunctival injection, periorbital swelling ENT exam: Present: normal exam, mucous membranes moist Neck exam: Present: normal inspection. Absent: tenderness, meningismus, lymphadenopathy Respiratory exam: Present: wheezes, accessory muscle use, decreased breath sounds Cardiovascular Exam: Present: tachycardia GI/Abdominal exam: Present: soft, normal bowel sounds. Absent: distended, tenderness, guarding, rebound, rigid Extremities exam: Present: normal inspection, full ROM, normal capillary refill , pedal edema (Trace edema). Absent: tenderness, joint swelling, calf tenderness Back exam: Present: normal inspection Neurological exam: Present: alert, oriented X3, CN II-XII intact Psychiatric exam: Present: normal affect, normal mood Skin exam: Present: warm, dry, intact, normal color. Absent: rash Course Vital Signs 08/03/16 08/03/16 08/03/16 10:46 11:00 11:09 Temperature 100.3 F H 100.0 F H Pulse Rate 123 H 110 H Respiratory 30 H 20 26 H Rate Blood Pressure 163/110 163/110 O2 Sat by Pulse 94 L 96 Oximetry 08/03/16 08/03/16 08/03/16 12:00 12:32 12:41 Temperature 98.0 F Pulse Rate 112 H 109 H 111 H Respiratory 24 Rate Blood Pressure 130/54 O2 Sat by Pulse 95 Oximetry 08/03/16 08/03/16 08/03/16 12:45 13:15 13:44 Temperature 99.0 F Pulse Rate 108 H 100 98 Respiratory 24 24 Rate Blood Pressure 130/56 137/60 O2 Sat by Pulse 95 94 L Oximetry 08/03/16 08/03/16 08/03/16 13:45 13:56 14:14 Temperature Pulse Rate 92 96 98 Respiratory 24 22 Rate Blood Pressure 145/63 118/67 O2 Sat by Pulse 94 L 96 Oximetry - Reevaluation(s) Reevaluation #1: 08/03/16 15:33 Reevaluation patient reveals he is feeling slightly better but still very dyspneic with some diaphoresis he does demonstrate diffuse wheezing and diminished breath sounds bilaterally. Medical Decision Making - Medical Decision Making I did discuss findings with the patient family no definite source of infection is likely viral in etiology however a pneumonitis cannot be ruled out. Patient will be admitted I did discuss case with Dr. Haley who did come in to see the patient. Patient does see Dr. Boo who service will be consulted. - Lab Data Result diagrams: 08/03/16 11:05 08/03/16 11:54 Lab Results 08/03/16 08/03/16 08/03/16 Range/Units 11:00 11:05 11:05 WBC 10.4 (3.8-10.6) k/uL RBC 4.69 (4.30-5.90) m/uL Hgb 15.3 (13.0-17.5) gm/dL Hct 46.4 (39.0-53.0) % MCV 99.0 (80.0-100.0) fL MCH 32.5 (25.0-35.0) pg MCHC 32.9 (31.0-37.0) g/dL RDW 14.9 (11.5-15.5) % Plt Count 164 (150-450) k/uL Neutrophils % 82 % Lymphocytes % 8 % Monocytes % 6 % Eosinophils % 1 % Basophils % 1 % Neutrophils # 8.6 H (1.3-7.7) k/uL Lymphocytes # 0.9 L (1.0-4.8) k/uL Monocytes # 0.6 (0-1.0) k/uL Eosinophils # 0.1 (0-0.7) k/uL Basophils # 0.1 (0-0.2) k/uL PT (9.0-12.0) sec INR (<1.1) APTT (22.0-30.0) sec Sodium (137-145) mmol/L Potassium (3.5-5.1) mmol/L Chloride (98-107) mmol/L Carbon Dioxide (22-30) mmol/L Anion Gap mmol/L BUN (9-20) mg/dL Creatinine (0.66-1.25) mg/dL Est GFR (MDRD) Af Amer (>60 ml/min/1.73 sqM) Est GFR (MDRD) Non-Af (>60 ml/min/1.73 sqM) Glucose (74-99) mg/dL Calcium (8.4-10.2) mg/dL Magnesium (1.6-2.3) mg/dL Total Bilirubin (0.2-1.3) mg/dL AST (17-59) U/L ALT (21-72) U/L Alkaline Phosphatase (38-126) U/L Total Creatine Kinase (55-170) U/L CK-MB (CK-2) (0.0-2.4) ng/mL CK-MB (CK-2) Rel Index Troponin I (0.000-0.034) ng/mL NT-Pro-B Natriuret Pep pg/mL Total Protein (6.3-8.2) g/dL Albumin (3.5-5.0) g/dL Urine Color Light Yellow Urine Appearance Clear (Clear) Urine pH 7.5 (5.0-8.0) Ur Specific [place] 1.011 (1.001-1.035) Urine Protein Trace H (Negative) Urine Glucose (UA) Negative (Negative) Urine Ketones Negative (Negative) Urine Blood Small H (Negative) Urine Nitrite Negative (Negative) Urine Bilirubin Negative (Negative) Urine Urobilinogen <2.0 (<2.0) mg/dL Ur Leukocyte Esterase Negative (Negative) Urine RBC 10 H (0-5) /hpf Urine WBC 1 (0-5) /hpf Urine Mucus Rare H (None) /hpf Influenza Type A RNA Not Detected (Not Detectd) Influenza Type B (PCR) Not Detected (Not Detectd) 08/03/16 08/03/16 08/03/16 Range/Units 11:05 11:54 11:54 WBC (3.8-10.6) k/uL RBC (4.30-5.90) m/uL Hgb (13.0-17.5) gm/dL Hct (39.0-53.0) % MCV (80.0-100.0) fL MCH (25.0-35.0) pg MCHC (31.0-37.0) g/dL RDW (11.5-15.5) % Plt Count (150-450) k/uL Neutrophils % % Lymphocytes % % Monocytes % % Eosinophils % % Basophils % % Neutrophils # (1.3-7.7) k/uL Lymphocytes # (1.0-4.8) k/uL Monocytes # (0-1.0) k/uL Eosinophils # (0-0.7) k/uL Basophils # (0-0.2) k/uL PT 10.2 (9.0-12.0) sec INR 1.0 (<1.1) APTT 27.6 (22.0-30.0) sec Sodium 136 L (137-145) mmol/L Potassium 3.8 (3.5-5.1) mmol/L Chloride 102 (98-107) mmol/L Carbon Dioxide 26 (22-30) mmol/L Anion Gap 8 mmol/L BUN 20 (9-20) mg/dL Creatinine 0.98 (0.66-1.25) mg/dL Est GFR (MDRD) Af Amer >60 (>60 ml/min/1.73 sqM) Est GFR (MDRD) Non-Af >60 (>60 ml/min/1.73 sqM) Glucose 92 (74-99) mg/dL Calcium 9.1 (8.4-10.2) mg/dL Magnesium 1.9 (1.6-2.3) mg/dL Total Bilirubin 0.6 (0.2-1.3) mg/dL AST 35 (17-59) U/L ALT 34 (21-72) U/L Alkaline Phosphatase 65 (38-126) U/L Total Creatine Kinase (55-170) U/L CK-MB (CK-2) (0.0-2.4) ng/mL CK-MB (CK-2) Rel Index Troponin I (0.000-0.034) ng/mL NT-Pro-B Natriuret Pep 89 pg/mL Total Protein 6.5 (6.3-8.2) g/dL Albumin 4.0 (3.5-5.0) g/dL Urine Color Urine Appearance (Clear) Urine pH (5.0-8.0) Ur Specific [place] (1.001-1.035) Urine Protein (Negative) Urine Glucose (UA) (Negative) Urine Ketones (Negative) Urine Blood (Negative) Urine Nitrite (Negative) Urine Bilirubin (Negative) Urine Urobilinogen (<2.0) mg/dL Ur Leukocyte Esterase (Negative) Urine RBC (0-5) /hpf Urine WBC (0-5) /hpf Urine Mucus (None) /hpf Influenza Type A RNA (Not Detectd) Influenza Type B (PCR) (Not Detectd) 08/03/16 Range/Units 11:54 WBC (3.8-10.6) k/uL RBC (4.30-5.90) m/uL Hgb (13.0-17.5) gm/dL Hct (39.0-53.0) % MCV (80.0-100.0) fL MCH (25.0-35.0) pg MCHC (31.0-37.0) g/dL RDW (11.5-15.5) % Plt Count (150-450) k/uL Neutrophils % % Lymphocytes % % Monocytes % % Eosinophils % % Basophils % % Neutrophils # (1.3-7.7) k/uL Lymphocytes # (1.0-4.8) k/uL Monocytes # (0-1.0) k/uL Eosinophils # (0-0.7) k/uL Basophils # (0-0.2) k/uL PT (9.0-12.0) sec INR (<1.1) APTT (22.0-30.0) sec Sodium (137-145) mmol/L Potassium (3.5-5.1) mmol/L Chloride (98-107) mmol/L Carbon Dioxide (22-30) mmol/L Anion Gap mmol/L BUN (9-20) mg/dL Creatinine (0.66-1.25) mg/dL Est GFR (MDRD) Af Amer (>60 ml/min/1.73 sqM) Est GFR (MDRD) Non-Af (>60 ml/min/1.73 sqM) Glucose (74-99) mg/dL Calcium (8.4-10.2) mg/dL Magnesium (1.6-2.3) mg/dL Total Bilirubin (0.2-1.3) mg/dL AST (17-59) U/L ALT (21-72) U/L Alkaline Phosphatase (38-126) U/L Total Creatine Kinase 243 H (55-170) U/L CK-MB (CK-2) 3.2 H* (0.0-2.4) ng/mL CK-MB (CK-2) Rel Index 1.3 Troponin I 0.019 (0.000-0.034) ng/mL NT-Pro-B Natriuret Pep pg/mL Total Protein (6.3-8.2) g/dL Albumin (3.5-5.0) g/dL Urine Color Urine Appearance (Clear) Urine pH (5.0-8.0) Ur Specific [place] (1.001-1.035) Urine Protein (Negative) Urine Glucose (UA) (Negative) Urine Ketones (Negative) Urine Blood (Negative) Urine Nitrite (Negative) Urine Bilirubin (Negative) Urine Urobilinogen (<2.0) mg/dL Ur Leukocyte Esterase (Negative) Urine RBC (0-5) /hpf Urine WBC (0-5) /hpf Urine Mucus (None) /hpf Influenza Type A RNA (Not Detectd) Influenza Type B (PCR) (Not Detectd) - EKG Data -: EKG Interpreted by Md EKG shows normal: sinus rhythm (Sinus tachycardia rate of 116. Interval 136 QRS duration 76 daily since QTC of 310/4:30 rightward axis nonspecific anterior changes.) - Radiology Data Radiology results: report reviewed (Review the x-ray report demonstrate no definite infiltrate evidence of COPD.), image reviewed Critical Care Time Critical Care Time: Yes Critical Care Time: 31 minutes of critical care time which includes initial presentation with history physical lab x-rays reevaluation of the patient discussion with the attending admission orders and documentation the above. Disposition Clinical Impression: Acute exacerbation of chronic obstructive airways disease, Adult respiratory distress syndrome, Febrile illness, acute Disposition: ADMITTED IP TO THIS HOSP Condition: Stable
[2016-08-03 11:27] LABS: Basophils # (A) 0.1 k/uL (0-0.2); Basophils % (A) 1 %; CH 33.1; CHCM 33.6; Eosinophils # (A) 0.1 k/uL (0-0.7); Eosinophils % (A) 1 %; HCT 46.4 % (39.0-53.0); HGB 15.3 gm/dL (13.0-17.5); Luc # (Auto) 0.19; Luc % (Auto) 2; Lymphocytes # (A) 0.9 k/uL (1.0-4.8); Lymphocytes % (A) 8 %; MCH 32.5 pg (25.0-35.0); MCHC 32.9 g/dL (31.0-37.0); Mean Platelet Volume 6.7; Monocytes # (A) 0.6 k/uL (0-1.0); Monocytes % (A) 6 %; Neutrophils # (A) 8.6 k/uL (1.3-7.7); Neutrophils % (A) 82 %; RBC 4.69 m/uL (4.30-5.90); RDW 14.9 % (11.5-15.5); WBC 10.4 k/uL (3.8-10.6); WBC (Perox) 10.35
[2016-08-03] MEDS ORDERED: IPRATROPIUM-ALBUTEROL 3 ML NEB INHALATION STA ×3 (12:25→15:40)
[2016-08-03 12:27] LABS: ALT 34 U/L (21-72); AST 35 U/L (17-59); Alkaline Phosphatase 65 U/L (38-126); Anion Gap 8 mmol/L; Blood Urea Nitrogen 20 mg/dL (9-20); Calcium 9.1 mg/dL (8.4-10.2); Carbon Dioxide 26 mmol/L (22-30); Chloride 102 mmol/L (98-107); Glucose 92 mg/dL (74-99); Magnesium 1.9 mg/dL (1.6-2.3); Non-African American GFR(MDRD) >60 (>60 ml/min/1.73 sqM); Partial Thromboplastin Time 27.6 sec (22.0-30.0); Potassium 3.8 mmol/L (3.5-5.1); Prothrombin Time 10.2 sec (9.0-12.0); Sodium 136 mmol/L (137-145); Total Bilirubin 0.6 mg/dL (0.2-1.3); Total Protein 6.5 g/dL (6.3-8.2)
[2016-08-03 12:32] LABS: Appearance,Urine Clear (Clear); Bilirubin,Urine Negative (Negative); Glucose,Urine (UA) Negative (Negative); Ketones,Urine Negative (Negative); Leukocyte Esterase,Urine Negative (Negative); Mucus,Urine Rare /hpf; Nitrite,Urine Negative (Negative); PH, Urine 7.5 (5.0-8.0); Particle Count 480; Protein,Urine Trace (Negative); RBC,Urine 10 /hpf (0-5); Specific Gravity,Urine 1.011 (1.001-1.035); UA Billing (MACRO vs. MICRO) MICRO; Urobilinogen,Urine <2.0 mg/dL (<2.0); WBC,Urine 1 /hpf (0-5)
--- NOTE | 2016-08-03 12:43 | XR ---
EXAMINATION TYPE: XR chest 2V DATE OF EXAM: 08/03/2016 11:47 AM COMPARISON: NONE HISTORY: Chest pain TECHNIQUE: Frontal and lateral views of the chest are obtained. FINDINGS: There is a 0.5 cm density in the periphery of the right lung likely is a granuloma. No gary tional infiltrates or masses are evident. Hyperinflation flattening the diaphragms compatible with CO PD. IMPRESSION: 1. COPD. 2. No acute pulmonary process.
[2016-08-03 12:49] LABS: Troponin I 0.019 ng/mL (0.000-0.034)
[2016-08-03 12:52] LABS: Creatine Kinase MB 3.2 ng/mL (0.0-2.4)
[2016-08-03] MEDS ORDERED: IBUPROFEN 800 MG TAB PO PRN (15:39)
[2016-08-03] MEDS ORDERED: LEVOFLOXACIN 750MG-D5W PMX 750 MG in DEXTROSE/WATER 1 150ML.BAG IVPB STA (15:40)
--- NOTE | 2016-08-03 15:50 | P.HPIM ---
History of Present Illness H&P Date: 08/03/16 Chief Complaint: COPD exacerbation/difficulty breathing This is a 76-year-old male one of Dr. 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 Boo currently on oxygen, hypertension and hypertensive cardio vascular disease, laryngeal cancer, status post radiation therapy, hypothyroidism, outpatient was in his usual state of health about a week ago when he developed to have an increased shortness breath associated with increased cough minimal phlegm production patient stated that he has been on a steroid pack for quite sometime did not do much for him patient ended up coming to the ER today because he could not breathe despite the fact he has been using his nebulized treatment [id number] and oxygen without any help patient had a chest x-ray that was negative, but for right pulmonary nodule, patient also was found to have a minimal leukocytosis, with minimal left shift, he had a low-grade temperature in the ER, patient was admitted to the hospital for acute respiratory failure due to COPD exacerbation. Review of Systems Constitutional: Reports sweats, Denies anorexia, Denies chills, Denies chronic headaches, Denies lethargy, Denies malaise, Denies weakness, Denies weight gain Eyes: denies blurred vision, denies bulging eye, denies decreased vision, denies diplopia Ears: deny: decreased hearing Ears, nose, mouth and throat: Denies dysphagia, Denies neck lump, Denies sore throat, Denies vertigo Cardiovascular: Reports decreased exercise tolerance, Reports dyspnea on exertion, Reports high blood pressure, Reports shortness of breath, Denies chest pain, Denies phlebitis, Denies rapid heart beat, Denies syncope Respiratory: Reports cough with sputum, Reports dyspnea, Reports home oxygen, Reports wheezing, Denies congestion, Denies sleep apnea, Denies snoring Gastrointestinal: Denies abdominal pain, Denies bloating, Denies BRBPR, Denies excessive gas, Denies heartburn, Denies loss of appetite, Denies melena, Denies nausea, Denies vomiting Genitourinary: Denies dysuria, Denies nocturia, Denies polyuria Musculoskeletal: Denies myalgias Musculoskeletal: absent: ankle pain, ankle stiffness, ankle swelling, elbow pain , elbow stiffness, elbow swelling, foot pain, foot stiffness, foot swelling, hand pain, hand stiffness, hand swelling, hip pain, hip stiffness, hip swelling , knee pain, knee stiffness, knee swelling, shoulder pain, shoulder stiffness, shoulder swelling, wrist pain, wrist stiffness, wrist swelling Integumentary: Denies pruritus, Denies rash Neurological: Denies numbness, Denies weakness Psychiatric: Denies anxiety, Denies depression Endocrine: Denies fatigue, Denies weight change Past Medical History Past Medical History: Cancer, COPD, Hyperlipidemia, Hypertension, Osteoarthritis (OA), Thyroid Disorder Additional Past Medical History / Comment(s): LARYNX CANCER-HAD RADIATION TREATMENT, EMPHYSEMA History of Any Multi-Drug Resistant Organisms: None Reported Past Surgical History: Appendectomy, Back Surgery Additional Past Surgical History / Comment(s): SKIN BIOSPY Past Anesthesia/Blood Transfusion Reactions: No Reported Reaction Past Psychological History: No Psychological Hx Reported Additional Psychological History / Comment(s): , lives in the family home with his daughter and her 3 children. He is retired from [employer]. He apparently is still an ongoing tobacco user approximately half pack per day which is decreased from 3 packs per day when he was younger. Denies a history of excessive alcohol use or recreational drug use. 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 No one in the family home is currently ill. There are no pets in the home. Smoking Status: Current every day smoker Past Alcohol Use History: Daily Past Drug Use History: None Reported - Past Family History Father Family Medical History: Myocardial Infarction (IN) (Father at age of 50 from CAD.) Additional Family Medical History / Comment(s): at a young age from a hreat attack Mother Family Medical History: COPD (Mother at age of 85 from COPD.) Additional Family Medical History / Comment(s): had heart disease Sister(s) Family Medical History: Cancer (Patient had 3 sisters one of them from breast cancer the other one from breast cancer and a third one from leukemia) Brother(s) Family Medical History: Coronary Artery Disease (CAD) (Patient had 2 brothers one at age of 40 from CAD and the other one at the age of 90.) Daughter(s) Family Medical History: No Reported History (Patient has 2 daughters no major medical problems) Son(s) Family Medical History: No Reported History (Patient has 2 sons no major medical problems.) Medications and Allergies Home Medications Medication Instructions Recorded Confirmed Type Levothyroxine Sodium [Synthroid] 50 mcg PO DAILY 01/11/14 08/03/16 History Simvastatin [Zocor] 5 mg PO DAILY 01/11/14 08/03/16 History Terazosin HCl [Hytrin] 10 mg PO HS 01/11/14 08/03/16 History amLODIPine BESYLATE [Norvasc] 10 mg PO DAILY 01/11/14 08/03/16 History Budesonide/Formoterol Fumarate 2 puff INHALATION RT-BID 04/14/16 08/03/16 History [Symbicort 160-4.5 Mcg Inhaler] HYDROcodone/APAP 10-325MG [[place] 1 tab PO QID PRN 04/14/16 08/03/16 History 10-325] Tiotropium 18 Mcg/Puff [Spiriva] 1 cap INHALATION RT-DAILY 04/14/16 08/03/16 History Dexamethasone 0.75 mg PO DAILY 08/03/16 08/03/16 History Ibuprofen [Motrin] 800 mg PO TID PRN 08/03/16 08/03/16 History Ipratropium/Albuterol Sulfate 1 puff INHALATION RT-QID 08/03/16 08/03/16 History [Combivent Respimat Inhaler] Magnesium Oxide [Mag-Ox] 400 mg PO DAILY 08/03/16 08/03/16 History Methocarbamol [Robaxin] 750 mg PO QID PRN 08/03/16 08/03/16 History Montelukast [Singulair] 10 mg PO DAILY 08/03/16 08/03/16 History Omeprazole 40 mg PO DAILY 08/03/16 08/03/16 History Theophylline 12 Hour [Sanjeev-Dur] 100 mg PO DAILY 08/03/16 08/03/16 History Allergies Allergy/AdvReac Type Severity Reaction Status Date / Time methylprednisolone sodium Allergy Rash/Hives Verified 08/03/16 12:30 succinate [From Solu-Medrol] Penicillins Allergy Unknown Verified 08/03/16 12:30 prednisone Allergy Rash/Hives Verified 08/03/16 12:30 Sulfa (Sulfonamide Allergy Rash/Hives Verified 08/03/16 12:30 Antibiotics) Physical Exam Vitals: Vital Signs Temp Pulse Resp BP Pulse Ox 08/03/16 14:14 98 22 118/67 96 08/03/16 13:56 96 08/03/16 13:45 92 24 145/63 94 L 08/03/16 13:44 98 08/03/16 13:15 100 24 137/60 94 L 08/03/16 12:45 99.0 F 108 H 24 130/56 95 08/03/16 12:41 111 H 08/03/16 12:32 109 H 08/03/16 12:00 98.0 F 112 H 24 130/54 95 08/03/16 11:09 26 H 08/03/16 11:00 100.0 F H 110 H 20 163/110 96 08/03/16 10:46 100.3 F H 123 H 30 H 163/110 94 L Intake and Output 08/03/16 08/03/16 08/03/16 06:59 14:59 22:59 Other: Weight 68.039 kg Patient Weight 08/04/16 06:59 Weight 68.039 kg - Constitutional General appearance: severe distress - EENT Eyes: EOMI, PERRLA, no ptosis, no scleral icterus, normal appearance ENT: NA/AT, normal oropharynx, no thrush, no tonsillar exudates Ears: bilateral: normal - Neck Neck: no lymphadenopathy, no normal ROM, no rigidity, no stridor, no thyromegaly Carotids: bilateral: upstroke delayed Thyroid: bilateral: normal size - Respiratory Respiratory: bilateral: diminished, rhonchi, wheezing, prolonged expiration, negative: dullness, rales - Cardiovascular Rhythm: regular Heart sounds: normal: S1, S2 Abnormal Heart Sounds: systolic murmur, no S3 Gallop, no S4 Gallop, no click - Gastrointestinal General gastrointestinal: normal bowel sounds, soft, no splenomegaly, no tenderness, no umbilical hernia, no ventral hernia - Integumentary Integumentary: normal, normal turgor - Neurologic Neurologic: CNII-XII intact - Musculoskeletal Musculoskeletal: generalized weakness - Psychiatric Psychiatric: A&O x's 3, appropriate affect, intact judgment & insight Results CBC & Chem 7: 08/03/16 11:05 08/03/16 11:54 Labs: Abnormal Lab Results - Last 24 Hours (Table) 08/03/16 08/03/16 08/03/16 Range/Units 11:00 11:05 11:54 Neutrophils # 8.6 H (1.3-7.7) k/uL Lymphocytes # 0.9 L (1.0-4.8) k/uL Sodium 136 L (137-145) mmol/L Total Creatine Kinase (55-170) U/L CK-MB (CK-2) (0.0-2.4) ng/mL Urine Protein Trace H (Negative) Urine Blood Small H (Negative) Urine RBC 10 H (0-5) /hpf Urine Mucus Rare H (None) /hpf 08/03/16 Range/Units 11:54 Neutrophils # (1.3-7.7) k/uL Lymphocytes # (1.0-4.8) k/uL Sodium (137-145) mmol/L Total Creatine Kinase 243 H (55-170) U/L CK-MB (CK-2) 3.2 H* (0.0-2.4) ng/mL Urine Protein (Negative) Urine Blood (Negative) Urine RBC (0-5) /hpf Urine Mucus (None) /hpf Thrombosis Risk Factor Assmnt - DVT/VTE Prophylaxis DVT/VTE Prophylaxis: Pharmacologic Prophylaxis ordered, Mechanical Prophylaxis ordered Assessment and Plan Plan: Assessment and plan: 1. Acute respiratory failure secondary to acute exacerbation of the severe COPD with acute bronchitis. Start the patient on Decadron 4mg IV push every 8 hours, continue patient on DuoNeb 3 mg nebulization 4 times every day, continue patient on Pulmicort 1 mg nebulization twice every day, continue oxygen support , continue Levaquin 500 mg IV piggyback every 24 hours, Mucinex 1200 mg orally twice every day, pulmonary consultation from Dr. Naik. 2. 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 Patient will need to be evaluated by cardiology as an outpatient. We' ll continue to monitor his cardiac enzymes every 8 hours for the next 24 hours. 3. Hypertension and hypertensive cardiovascular disease. Continue amlodipine 10 mg orally once every day. 4. Hyperlipidemia. Continue simvastatin 5 mg at bedtime. 5. Thyroidism. Continue Synthroid 50 g orally once every day. 6. Chronic tobacco use and dependence. Abstinence from smoking. 7. Laryngeal cancer status post rotation therapy. Stable. 8. Chronic low back pain. Continue Robaxin. 9. Steroid-induced hyperglycemia. We'll start the patient on the sliding scale insulin. 10. DVT prophylaxis. Heparin 5000 units subcutaneously every 12 hours, bilateral knee-high POORNIMA hose. 11. GI prophylaxis. Protonix 40 mg orally once every day. 12. Patient is full code. 13. Admit to inpatient. Estimated length of stay 2 midnights.
[2016-08-03] MEDS: SODIUM CHLORIDE 0.9% 1,000 ML IV SCH (16:01)
[2016-08-03] MEDS: IPRATROPIUM-ALBUTEROL 3 ML NEB INHALATION SCH ×4 (16:18→23:25)
[2016-08-03] MEDS: METHOCARBAMOL 750 MG TAB PO PRN ×2 (17:50→21:47)
[2016-08-03] MEDS: TERAZOSIN 5 MG CAP PO SCH (21:47)
[2016-08-04] MEDS: IPRATROPIUM-ALBUTEROL 3 ML NEB INHALATION SCH ×5 (03:17→19:04)
[2016-08-04] MEDS: SODIUM CHLORIDE 0.9% 1,000 ML IV SCH ×2 (06:36→17:03)
[2016-08-04] MEDS: LEVOTHYROXINE 50 MCG TAB PO SCH (06:36)
[2016-08-04] MEDS ORDERED: TIOTROPIUM 18 MCG/PUFF INHALER INHALATION SCH (08:00)
[2016-08-04] MEDS: PANTOPRAZOLE 40 MG TABLET PO SCH (08:10)
[2016-08-04] MEDS: ATORVASTATIN 10 MG TAB PO SCH (08:10)
[2016-08-04] MEDS: amLODIPine 10 MG TAB PO SCH (08:10)
[2016-08-04] MEDS: MONTELUKAST 10 MG TAB PO SCH (08:11)
[2016-08-04] MEDS: MAGNESIUM OXIDE 400 MG TAB PO SCH (08:11)
[2016-08-04] MEDS ORDERED: DEXAMETHASONE 0.5 MG TAB PO SCH (09:00)
[2016-08-04] MEDS: DEXAMETHASONE SOD PHOSPHATE 4 MG/ML 1 ML VIAL IV SCH ×3 (09:41→23:03)
[2016-08-04] MEDS: FORMOTEROL FUMARATE 20 MCG/2 ML NEBU INHALATION SCH ×2 (09:43→19:04)
[2016-08-04] MEDS: BUDESONIDE 1 MG/2 ML NEBU INHALATION SCH ×2 (09:43→19:04)
--- NOTE | 2016-08-04 09:53 | P.PN ---
Subjective This is a 76-year-old male one of Dr. 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 Boo currently on oxygen, hypertension and hypertensive cardio vascular disease, laryngeal cancer, status post radiation therapy, hypothyroidism, outpatient was in his usual state of health about a week ago when he developed to have an increased shortness breath associated with increased cough minimal phlegm production patient stated that he has been on a steroid pack for quite sometime did not do much for him patient ended up coming to the ER today because he could not breathe despite the fact he has been using his nebulized treatment [id number] and oxygen without any help patient had a chest x-ray that was negative, but for right pulmonary nodule, patient also was found to have a minimal leukocytosis, with minimal left shift, he had a low-grade temperature in the ER, patient was admitted to the hospital for acute respiratory failure due to COPD exacerbation. 08/04: still very short of breath will start Decadron 4 mg IVP q 8 h and will add Pulmicort 1 mg neb bid along with Performist bid,pulmonary to see the patient. Objective - Vital Signs Vital signs: Vital Signs Temp 97.5 F L 08/04/16 07:00 Pulse 94 08/04/16 09:47 Resp 20 08/04/16 07:00 BP 130/83 08/04/16 07:00 Pulse Ox 96 08/04/16 07:00 Intake & Output 08/03/16 08/04/16 08/04/16 18:59 06:59 18:59 Intake Total 960 Output Total 625 Balance 960 -625 Weight 68.039 kg 68.039 kg Intake: Intake, IV Titration 720 Amount Sodium Chloride 0.9% 1, 720 000 ml @ 80 mls/hr IV . [id number] [facility] Rx#:[id number] Oral 240 Output: Urine 625 Other: Voiding Method Urinal # Voids 2 - Exam - Constitutional General appearance: severe distress - EENT Eyes: EOMI, PERRLA, no ptosis, no scleral icterus, normal appearance ENT: NA/AT, normal oropharynx, no thrush, no tonsillar exudates Ears: bilateral: normal - Neck Neck: no lymphadenopathy, no normal ROM, no rigidity, no stridor, no thyromegaly Carotids: bilateral: upstroke delayed Thyroid: bilateral: normal size - Respiratory Respiratory: bilateral: diminished, rhonchi, wheezing, prolonged expiration, negative: dullness, rales - Cardiovascular Rhythm: regular Heart sounds: normal: S1, S2 Abnormal Heart Sounds: systolic murmur, no S3 Gallop, no S4 Gallop, no click - Gastrointestinal General gastrointestinal: normal bowel sounds, soft, no splenomegaly, no tenderness, no umbilical hernia, no ventral hernia - Integumentary Integumentary: normal, normal turgor - Neurologic Neurologic: CNII-XII intact - Musculoskeletal Musculoskeletal: generalized weakness - Psychiatric Psychiatric: A&O x's 3, appropriate affect, intact judgment & insight - Labs CBC & Chem 7: 08/03/16 11:05 08/03/16 11:54 Assessment and Plan Plan: Assessment and plan: 1. Acute respiratory failure secondary to acute exacerbation of the severe COPD with acute bronchitis. Start the patient on Decadron 4mg IV push every 8 hours, continue patient on DuoNeb 3 mg nebulization 4 times every day, continue patient on Pulmicort 1 mg nebulization twice every day, continue oxygen support , continue Levaquin 500 mg IV piggyback every 24 hours, Mucinex 1200 mg orally twice every day, pulmonary consultation from Dr. Naik. 2. 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 Patient will need to be evaluated by cardiology as an outpatient. We' ll continue to monitor his cardiac enzymes every 8 hours for the next 24 hours. 3. Hypertension and hypertensive cardiovascular disease. Continue amlodipine 10 mg orally once every day. 4. Hyperlipidemia. Continue simvastatin 5 mg at bedtime. 5. Thyroidism. Continue Synthroid 50 g orally once every day. 6. Chronic tobacco use and dependence. Abstinence from smoking. 7. Laryngeal cancer status post rotation therapy. Stable. 8. Chronic low back pain. Continue Robaxin. 9. Steroid-induced hyperglycemia. We'll start the patient on the sliding scale insulin. 10. DVT prophylaxis. Heparin 5000 units subcutaneously every 12 hours, bilateral knee-high POORNIMA hose. 11. GI prophylaxis. Protonix 40 mg orally once every day. 12. will continue to follow.
[2016-08-04 11:22] LABS: Glucose,Whole Blood 108 mg/dL (75-99)
[2016-08-04] MEDS: INSULIN LISPRO (humaLOG) 300 UNIT/3 ML VIAL SQ SCH ×2 (11:41→17:20)
[2016-08-04] MEDS: LEVOFLOXACIN 500 MG TAB PO SCH (15:48)
--- NOTE | 2016-08-04 16:10 | CONS ---
DATE OF CONSULTATION: This is a 76-year-old male with a history of underlying COPD. According to his daughter, he has got an FEV1, which is 30% of predicted. He sees my partner Dr. Boo in the office. He came in with complaints of increasing shortness of breath over the last couple days. He got progressively worse and he decided to come to the emergency room to be evaluated. He was using his usual medications. He was coughing and wheezing, coughing up some phlegm. The phlegm is mostly white to clear. The patient denies any hemoptysis. No fever, no chills. He had no chest pain or chest discomfort. No nausea, vomiting, or diarrhea. He was basically admitted with a diagnosis of COPD exacerbation. His chest x-ray was reported as being normal. The patient's medications include levothyroxine, Zocor, Norvasc, Symbicort, [place], Spiriva, Decadron, ibuprofen, albuterol, magnesium, Robaxin, Singulair, omeprazole, theophylline. ALLERGIES INCLUDE METHYLPREDNISOLONE, PENICILLIN AND PREDNISONE AND SULFA. Past medical history includes COPD, which sounds like it is stage III/IV, hypertension, hypothyroidism, gastroesophageal reflux disease and hyperlipidemia. In addition, he has a history of laryngeal carcinoma, status post radiation. Other surgical history includes appendectomy, back surgery, and skin biopsies. Social history is positive for ongoing tobacco use. He still continues to smoke despite the fact that he has severe COPD. Denies significant alcohol. No illicit drug use. Family history significant for myocardial infarction and heart disease in both the mother and father. REVIEW OF SYSTEMS: CONSTITUTIONAL: Negative. NEUROLOGICAL: Negative. HEENT: Negative. CARDIOVASCULAR: Negative. PULMONARY: Shortness of breath, chest tightness, wheezing, cough, minimal phlegm production. No hemoptysis. GI/: Negative. RHEUMATOLOGICAL/IMMUNOLOGIC: Negative. ENDOCRINOLOGIC/DERMATOLOGIC: Negative. Current vital signs are reviewed. Temperature 97.5, heart rate 86, respiratory rate 20, blood pressure 130/83, mean 98, 4 liters saturation 96%. Appears in no acute distress. HEENT examination is grossly unremarkable. Mucous membranes are moist. No oral lesions. Neck is supple. Full range of motion. No adenopathy or thyromegaly. Neck is veins are flat. Cardiovascular examination reveals regular rhythm and rate. Heart rate about 90 beats per minute. S1, S2 normal. No S3, S4, or murmur. Lungs reveal diffuse inspiratory and expiratory rhonchi and wheezes. Breath sounds diminished. There is slight prolongation. He wheezes and coughs on forced maneuver. Abdomen is soft. Bowel sounds are heard. No masses or tenderness. Extremities are intact. No cyanosis, clubbing or edema. Skin without rash. Brief neurological examination is nonfocal. Chest x-ray shows changes of COPD without an acute infiltrate. Lab data is reviewed. White count 10.4, hemoglobin and hematocrit and platelet count are all normal. PT, INR, PTT normal. D-dimer 0.75. Sodium 136. The rest of his comprehensive metabolic profile looks pretty good. CK was 243, MB was 3.2. Troponin 0.019. N-terminal proBNP was normal. Influenza studies were negative. Medications are reviewed. He is on theophylline, atorvastatin and Pulmicort updrafts 1 mg twice a day, Decadron 4 mg q.8., Lovenox, formoterol, updrafts with albuterol and Atrovent and Levaquin. The rest of his medications are basically his home medications. ASSESSMENT: 1. Chronic obstructive pulmonary disease exacerbation complicated by purulent tracheobronchitis without hari pneumonia. 2. Hypothyroidism. 3. Hypertension, 4. Hyperlipidemia. 5. History of laryngeal carcinoma, status post radiation. 6. Ongoing tobacco use despite counseling. PLAN: The patient is on all appropriate medications. He is on a short acting and long acting beta agonist. He is on a short acting muscarinic antagonist and inhaled corticosteroids. He is on systemic corticosteroids and oral antibiotic. Will continue to follow. Prognosis is guarded.
[2016-08-04 17:18] LABS: Glucose,Whole Blood 130 mg/dL (75-99)
[2016-08-04 20:34] LABS: Glucose,Whole Blood 181 mg/dL (75-99)
[2016-08-04] MEDS: TERAZOSIN 5 MG CAP PO SCH (21:27)
[2016-08-04] MEDS: IPRATROPIUM-ALBUTEROL 3 ML NEB INHALATION PRN (23:16)
[2016-08-05] MEDS: IPRATROPIUM-ALBUTEROL 3 ML NEB INHALATION PRN (03:13)
[2016-08-05 06:39] LABS: Glucose,Whole Blood 130 mg/dL (75-99)
[2016-08-05] MEDS: FORMOTEROL FUMARATE 20 MCG/2 ML NEBU INHALATION SCH ×2 (06:59→19:39)
[2016-08-05] MEDS: IPRATROPIUM-ALBUTEROL 3 ML NEB INHALATION SCH ×4 (06:59→19:39)
[2016-08-05] MEDS: BUDESONIDE 1 MG/2 ML NEBU INHALATION SCH ×2 (06:59→19:39)
[2016-08-05 08:02] LABS: Basophils % (A) 0 %; CH 32.9; CHCM 33.2; Eosinophils % (A) 0 %; HCT 41.9 % (39.0-53.0); HDW 2.52; HGB 13.4 gm/dL (13.0-17.5); Luc # (Auto) 0.09; Luc % (Auto) 1; Lymphocytes # (A) 0.5 k/uL (1.0-4.8); Lymphocytes % (A) 3 %; MCH 31.9 pg (25.0-35.0); MCHC 32.1 g/dL (31.0-37.0); MCV 99.6 fL (80.0-100.0); Mean Platelet Volume 6.9; Monocytes # (A) 0.5 k/uL (0-1.0); Monocytes % (A) 3 %; Neutrophils # (A) 14.1 k/uL (1.3-7.7); Neutrophils % (A) 93 %; RBC 4.21 m/uL (4.30-5.90); RDW 14.6 % (11.5-15.5); WBC 15.2 k/uL (3.8-10.6); WBC (Perox) 15.53
[2016-08-05] MEDS: LEVOTHYROXINE 50 MCG TAB PO SCH (08:20)
[2016-08-05] MEDS: PANTOPRAZOLE 40 MG TABLET PO SCH (08:20)
[2016-08-05] MEDS: DEXAMETHASONE SOD PHOSPHATE 4 MG/ML 1 ML VIAL IV SCH ×3 (08:20→23:13)
[2016-08-05] MEDS: amLODIPine 10 MG TAB PO SCH (08:21)
[2016-08-05] MEDS: ATORVASTATIN 10 MG TAB PO SCH (08:21)
[2016-08-05] MEDS: ENOXAPARIN 40 MG/0.4 ML SYRINGE SQ SCH (08:21)
[2016-08-05] MEDS: MONTELUKAST 10 MG TAB PO SCH (08:22)
[2016-08-05] MEDS: MAGNESIUM OXIDE 400 MG TAB PO SCH (08:22)
[2016-08-05] MEDS: INSULIN LISPRO (humaLOG) 300 UNIT/3 ML VIAL SQ SCH ×3 (08:23→17:50)
[2016-08-05 08:26] LABS: ALT 44 U/L (21-72); AST 65 U/L (17-59); Alkaline Phosphatase 60 U/L (38-126); Anion Gap 10 mmol/L; Blood Urea Nitrogen 25 mg/dL (9-20); Calcium 9.5 mg/dL (8.4-10.2); Carbon Dioxide 25 mmol/L (22-30); Chloride 106 mmol/L (98-107); Glucose 126 mg/dL (74-99); Non-African American GFR(MDRD) >60 (>60 ml/min/1.73 sqM); Potassium 4.3 mmol/L (3.5-5.1); Sodium 141 mmol/L (137-145); Total Bilirubin 0.4 mg/dL (0.2-1.3); Total Protein 6.5 g/dL (6.3-8.2)
[2016-08-05] MEDS ORDERED: FUROSEMIDE 10 MG/ML 4 ML VIAL IV STA (11:03)
[2016-08-05 11:39] LABS: Glucose,Whole Blood 129 mg/dL (75-99)
[2016-08-05] MEDS: SODIUM CHLORIDE 0.9% 1,000 ML IV SCH (11:41)
[2016-08-05] MEDS: THEOPHYLLINE 100 MG PO SCH (11:43)
--- NOTE | 2016-08-05 15:12 | P.PN ---
Subjective This is a 76-year-old male one of Dr. 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 Boo currently on oxygen, hypertension and hypertensive cardio vascular disease, laryngeal cancer, status post radiation therapy, hypothyroidism, outpatient was in his usual state of health about a week ago when he developed to have an increased shortness breath associated with increased cough minimal phlegm production patient stated that he has been on a steroid pack for quite sometime did not do much for him patient ended up coming to the ER today because he could not breathe despite the fact he has been using his nebulized treatment [id number]-pzx-bhmnf and oxygen without any help patient had a chest x-ray that was negative, but for right pulmonary nodule, patient also was found to have a minimal leukocytosis, with minimal left shift, he had a low-grade temperature in the ER, patient was admitted to the hospital for acute respiratory failure due to COPD exacerbation. 08/04: still very short of breath will start Decadron 4 mg IVP q 8 h and will add Pulmicort 1 mg neb bid along with Performist bid,pulmonary to see the patient. 08/05: Lungs are present at the same from yesterday. He will continue on Decadron at the same dose. IV fluids will be changed to saline lock and patient will be given 1 dose of IV Lasix. He has continued on DuoNeb treatments and Pulmicort, Levaquin and theophylline. Objective - Vital Signs Vital signs: Vital Signs Temp 97.9 F 08/05/16 07:00 Pulse 96 08/05/16 10:57 Resp 20 08/05/16 07:00 BP 169/81 08/05/16 07:00 Pulse Ox 95 08/05/16 07:02 Intake & Output 08/04/16 08/05/16 08/05/16 18:59 06:59 18:59 Intake Total 640 620 Output Total 1205 700 Balance -565 -80 Weight 68.039 kg Intake: IV 240 Sodium Chloride 0.9% 1, 240 000 ml @ 80 mls/hr IV . [id number] [facility] Rx#:[id number] Intake, IV Titration 640 Amount Sodium Chloride 0.9% 1, 640 000 ml @ 80 mls/hr IV . [id number] [facility] Rx#:[id number] Oral 380 Output: Urine 1205 700 Other: Voiding Method Urinal Urinal Urinal # Voids 1 - Exam General appearance: severe distress - EENT Eyes: EOMI, PERRLA, no ptosis, no scleral icterus, normal appearance ENT: NA/AT, normal oropharynx, no thrush, no tonsillar exudates Ears: bilateral: normal - Neck Neck: no lymphadenopathy, no normal ROM, no rigidity, no stridor, no thyromegaly Carotids: bilateral: upstroke delayed Thyroid: bilateral: normal size - Respiratory Respiratory: bilateral: diminished, rhonchi, wheezing, prolonged expiration, negative: dullness, rales - Cardiovascular Rhythm: regular Heart sounds: normal: S1, S2 Abnormal Heart Sounds: systolic murmur, no S3 Gallop, no S4 Gallop, no click - Gastrointestinal General gastrointestinal: normal bowel sounds, soft, no splenomegaly, no tenderness, no umbilical hernia, no ventral hernia - Integumentary Integumentary: normal, normal turgor - Neurologic Neurologic: CNII-XII intact - Musculoskeletal Musculoskeletal: generalized weakness - Psychiatric Psychiatric: A&O x's 3, appropriate affect, intact judgment & insight - Labs CBC & Chem 7: 08/05/16 07:42 08/05/16 07:42 Labs: Abnormal Lab Results - Last 24 Hours (Table) 08/04/16 08/04/16 08/04/16 Range/Units 11:14 17:15 20:26 WBC (3.8-10.6) k/uL RBC (4.30-5.90) m/uL Neutrophils # (1.3-7.7) k/uL Lymphocytes # (1.0-4.8) k/uL BUN (9-20) mg/dL Glucose (74-99) mg/dL POC Glucose (mg/dL) 108 H 130 H 181 H (75-99) mg/dL AST (17-59) U/L 08/05/16 08/05/16 08/05/16 Range/Units 06:38 07:42 07:42 WBC 15.2 H (3.8-10.6) k/uL RBC 4.21 L (4.30-5.90) m/uL Neutrophils # 14.1 H (1.3-7.7) k/uL Lymphocytes # 0.5 L (1.0-4.8) k/uL BUN 25 H (9-20) mg/dL Glucose 126 H (74-99) mg/dL POC Glucose (mg/dL) 130 H (75-99) mg/dL AST 65 H (17-59) U/L Assessment and Plan Plan: 1. Acute respiratory failure secondary to acute exacerbation of the severe COPD with acute bronchitis. Start the patient on Decadron 4mg IV push every 8 hours, continue patient on DuoNeb 3 mg nebulization 4 times every day, continue patient on Pulmicort 1 mg nebulization twice every day, continue oxygen support , continue Levaquin 500 mg IV PO every 24 hours, Mucinex 1200 mg orally twice every day, pulmonary consultation from Dr. Naik. 2. 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 Patient will need to be evaluated by cardiology as an outpatient. We' ll continue to monitor his cardiac enzymes every 8 hours for the next 24 hours. 3. Hypertension and hypertensive cardiovascular disease. Continue amlodipine 10 mg orally once every day. 4. Hyperlipidemia. Continue simvastatin 5 mg at bedtime. 5. Thyroidism. Continue Synthroid 50 g orally once every day. 6. Chronic tobacco use and dependence. Abstinence from smoking. 7. Laryngeal cancer status post rotation therapy. Stable. 8. Chronic low back pain. Continue Robaxin. 9. Steroid-induced hyperglycemia. We'll start the patient on the sliding scale insulin. 10. DVT prophylaxis. Heparin 5000 units subcutaneously every 12 hours, bilateral knee-high POORNIMA hose. 11. GI prophylaxis. Protonix 40 mg orally once every day. Discharge plan: Home Impression and plan of care have been directed as dictated by the signing physician. Joana Mcknight nurse practitioner acting as scribe for signing physician. Time with Patient: Greater than 30
[2016-08-05] MEDS: LEVOFLOXACIN 500 MG TAB PO SCH (15:33)
[2016-08-05 16:41] LABS: Glucose,Whole Blood 137 mg/dL (75-99)
--- NOTE | 2016-08-05 18:10 | P.PN ---
Subjective Principal diagnosis: COPD exacerbation This is a very pleasant 76-year-old gentleman who follows with Dr. 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 He also has a history of hypertension hypothyroidism gastroesophageal reflux disease and hyperlipidemia. He does have a history of laryngeal cancer status post radiation. He had presented here on 08/03/2016 with complaints of increasing shortness of breath cough and congestion. His chest x-ray revealed no acute pulmonary process. He is seen again today in follow-up on the regular medical floor. He is awake and alert in no acute distress. He is breathing better today as compared to yesterday but not quite back to his baseline. He is still somewhat bronchospastic and wheezy. He is requiring 4 L/m per nasal cannula to maintain O2 saturations in the mid 90s. Objective - Vital Signs Vital signs: Vital Signs Temp 97.8 F 08/05/16 15:00 Pulse 92 08/05/16 15:34 Resp 18 08/05/16 15:00 BP 145/67 08/05/16 15:00 Pulse Ox 95 08/05/16 15:00 Intake & Output 08/04/16 08/05/16 08/05/16 18:59 06:59 18:59 Intake Total 640 620 640 Output Total 7969 832 4324 Balance -565 -80 -460 Weight 68.039 kg Intake: IV 240 160 Sodium Chloride 0.9% 1, 240 160 000 ml @ 80 mls/hr IV . [id number] [facility] Rx#:[id number] Intake, IV Titration 640 Amount Sodium Chloride 0.9% 1, 640 000 ml @ 80 mls/hr IV . [id number] [facility] Rx#:[id number] Oral 380 480 Output: Urine 2032 261 6623 Other: Voiding Method Urinal Urinal Urinal # Voids 1 - Exam GENERAL EXAM: Alert, comfortable in no apparent distress. HEAD: Normocephalic. EYES: Normal reaction of pupils, equal size. NOSE: Clear with pink turbinates. THROAT: No erythema or exudates. NECK: No masses, no JVD. CHEST: No chest wall deformity. LUNGS: Equal air entry with bilateral wheeze. Diminished throughout. CVS: S1 and S2 normal with no audible murmur, regular rhythm. ABDOMEN: No hepatosplenomegaly, normal bowel sounds, no guarding or rigidity. SPINE: No scoliosis or deformity SKIN: No rashes CENTRAL NERVOUS SYSTEM: No focal deficits, tone is normal in all 4 extremities. Extremities: There is no significant peripheral edema. No clubbing, no cyanosis. Peripheral pulses are intact. - Labs CBC & Chem 7: 08/05/16 07:42 08/05/16 07:42 Labs: Abnormal Lab Results - Last 24 Hours (Table) 08/04/16 08/05/16 08/05/16 Range/Units 20:26 06:38 07:42 WBC 15.2 H (3.8-10.6) k/uL RBC 4.21 L (4.30-5.90) m/uL Neutrophils # 14.1 H (1.3-7.7) k/uL Lymphocytes # 0.5 L (1.0-4.8) k/uL BUN (9-20) mg/dL Glucose (74-99) mg/dL POC Glucose (mg/dL) 181 H 130 H (75-99) mg/dL AST (17-59) U/L 08/05/16 08/05/16 08/05/16 Range/Units 07:42 11:38 16:40 WBC (3.8-10.6) k/uL RBC (4.30-5.90) m/uL Neutrophils # (1.3-7.7) k/uL Lymphocytes # (1.0-4.8) k/uL BUN 25 H (9-20) mg/dL Glucose 126 H (74-99) mg/dL POC Glucose (mg/dL) 129 H 137 H (75-99) mg/dL AST 65 H (17-59) U/L Assessment and Plan Plan: Impression: #1 Acute exacerbation of chronic obstructive pulmonary disease. #2 Chronic and ongoing tobacco dependence. #3 Daily alcohol use. #4 History of laryngeal cancer status post radiation. #5 Hyperlipidemia. #6 Hyper tension. #7 Hypothyroidism. Plan: The patient was seen and evaluated by Dr. Boo. He is slow to progress but improving. We'll continue with his current medications including bronchodilators along with Pulmicort and Perforomist inhalations twice a day. He is on Decadron. Continue Singulair and theophylline. Continue empiric antibiotics in the form of Levaquin. He is again educated regarding the importance of complete smoking cessation. We will increase his activity as tolerated. We'll continue to follow.
[2016-08-05 20:06] LABS: Glucose,Whole Blood 124 mg/dL (75-99)
[2016-08-05] MEDS: TERAZOSIN 5 MG CAP PO SCH (21:26)
[2016-08-06] MEDS: IPRATROPIUM-ALBUTEROL 3 ML NEB INHALATION PRN ×2 (02:17→22:14)
[2016-08-06] MEDS: LEVOTHYROXINE 50 MCG TAB PO SCH (06:10)
[2016-08-06] MEDS: FORMOTEROL FUMARATE 20 MCG/2 ML NEBU INHALATION SCH ×2 (07:02→19:23)
[2016-08-06] MEDS: IPRATROPIUM-ALBUTEROL 3 ML NEB INHALATION SCH ×4 (07:02→19:23)
[2016-08-06] MEDS: BUDESONIDE 1 MG/2 ML NEBU INHALATION SCH ×2 (07:03→19:23)
[2016-08-06 07:22] LABS: Glucose,Whole Blood 121 mg/dL (75-99)
[2016-08-06] MEDS: INSULIN LISPRO (humaLOG) 300 UNIT/3 ML VIAL SQ SCH ×3 (09:17→17:32)
[2016-08-06] MEDS: THEOPHYLLINE 100 MG PO SCH (09:18)
[2016-08-06] MEDS: PANTOPRAZOLE 40 MG TABLET PO SCH (09:21)
[2016-08-06] MEDS: amLODIPine 10 MG TAB PO SCH (09:21)
[2016-08-06] MEDS: DEXAMETHASONE SOD PHOSPHATE 4 MG/ML 1 ML VIAL IV SCH ×3 (09:21→21:21)
[2016-08-06] MEDS: ENOXAPARIN 40 MG/0.4 ML SYRINGE SQ SCH (09:21)
[2016-08-06] MEDS: MAGNESIUM OXIDE 400 MG TAB PO SCH (09:21)
[2016-08-06] MEDS: ATORVASTATIN 10 MG TAB PO SCH (09:21)
[2016-08-06] MEDS: MONTELUKAST 10 MG TAB PO SCH (09:22)
[2016-08-06 12:28] LABS: Glucose,Whole Blood 117 mg/dL (75-99)
--- NOTE | 2016-08-06 13:21 | P.PN ---
Subjective This is a very pleasant 76-year-old gentleman who follows with Dr. 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 He also has a history of hypertension hypothyroidism gastroesophageal reflux disease and hyperlipidemia. He does have a history of laryngeal cancer status post radiation. He had presented here on 08/03/2016 with complaints of increasing shortness of breath cough and congestion. His chest x-ray revealed no acute pulmonary process. He is seen again today in follow-up on the regular medical floor. He is awake and alert in no acute distress. He is breathing better today as compared to yesterday but not quite back to his baseline. He is still somewhat bronchospastic and wheezy. He is requiring 4 L/m per nasal cannula to maintain O2 saturations in the mid 90s. On the patient is being seen in follow-up. The patient is feeling slightly better. Less short of breath compared to yesterday. He is cough and congestion is improved. No chest pain. No pleurisy. No change in mental status. No other complaints otherwise. The patient on Decadron as the patient is unable to tolerate any other form of steroids. Note that he is also on empiric antibiotic coverage with Levaquin 500 mg by mouth daily. Objective - Vital Signs Vital signs: Vital Signs Temp 97.7 F 08/06/16 07:00 Pulse 96 08/06/16 11:15 Resp 18 08/06/16 07:00 BP 134/71 08/06/16 07:00 Pulse Ox 94 L 08/06/16 07:03 Intake & Output 08/05/16 08/06/16 08/06/16 18:59 06:59 18:59 Intake Total 640 880 360 Output Total 1100 600 Balance -460 280 360 Weight 68.039 kg Intake: IV 160 880 Sodium Chloride 0.9% 1, 160 880 000 ml @ 80 mls/hr IV . [id number] [facility] Rx#:[id number] Oral 480 360 Output: Urine 1100 600 Other: Voiding Method Urinal Urinal Urinal # Voids 1 - Exam The patient appeared well nourished and normally developed. Vital signs as documented. Head exam is unremarkable. No scleral icterus or corneal arcus noted. Neck is without jugular venous distension, thyromegaly, or carotid bruits. Carotid upstrokes are brisk bilaterally. Lung examination shows diminished breath sounds bilaterally along with prolongation of expiratory phase of breathing and scattered external wheezes. Cardiac exam reveals the PMI to be normally sized and situated. Rhythm is regular. First and second heart sounds normal. No murmurs, rubs or gallops. Abdominal exam reveals normal bowel sounds, no masses, no organomegaly and no aortic enlargement. Extremities are nonedematous and both femoral and pedal pulses are normal. - Labs CBC & Chem 7: 08/05/16 07:42 08/05/16 07:42 Labs: Abnormal Lab Results - Last 24 Hours (Table) 08/05/16 08/05/16 08/06/16 Range/Units 16:40 20:03 07:21 POC Glucose (mg/dL) 137 H 124 H 121 H (75-99) mg/dL 08/06/16 Range/Units 12:27 POC Glucose (mg/dL) 117 H (75-99) mg/dL Assessment and Plan Plan: Impression: #1 Acute exacerbation of chronic obstructive pulmonary disease. #2 Chronic and ongoing tobacco dependence. #3 Daily alcohol use. #4 History of laryngeal cancer status post radiation. #5 Hyperlipidemia. #6 Hyper tension. #7 Hypothyroidism. SALINAS The patient is improving slowly. I think overall is improved compared to yesterday. Continued IV Decadron for another 24 hours. Continued empiric antibiotic coverage with Levaquin in addition to routine bronchodilators including combination of albuterol and Atrovent and Pulmicort Respules and Perforomist. Plan is to switch this patient to oral Decadron in the morning and he can be potentially discharged home on a combination of Spiriva and Symbicort which have been his maintenance medications. We'll continue to follow. His condition is stable for now.
--- NOTE | 2016-08-06 13:28 | P.PN ---
Subjective This is a 76-year-old male one of Dr. 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 Boo currently on oxygen, hypertension and hypertensive cardio vascular disease, laryngeal cancer, status post radiation therapy, hypothyroidism, outpatient was in his usual state of health about a week ago when he developed to have an increased shortness breath associated with increased cough minimal phlegm production patient stated that he has been on a steroid pack for quite sometime did not do much for him patient ended up coming to the ER today because he could not breathe despite the fact he has been using his nebulized treatment [id number] and oxygen without any help patient had a chest x-ray that was negative, but for right pulmonary nodule, patient also was found to have a minimal leukocytosis, with minimal left shift, he had a low-grade temperature in the ER, patient was admitted to the hospital for acute respiratory failure due to COPD exacerbation. 08/04: still very short of breath will start Decadron 4 mg IVP q 8 h and will add Pulmicort 1 mg neb bid along with Performist bid,pulmonary to see the patient. 08/05: Lungs are present at the same from yesterday. He will continue on Decadron at the same dose. IV fluids will be changed to saline lock and patient will be given 1 dose of IV Lasix. He has continued on DuoNeb treatments and Pulmicort, Levaquin and theophylline. 08/06: Respiratory status is improving slowly. He states he had a rough night but feeling much improved this morning. Decadron will be decreased to 4 mg IV every 12 hours. Patient denies any chest pain. He is very anxious to be discharged, possibly by tomorrow. Objective - Vital Signs Vital signs: Vital Signs Temp 97.7 F 08/06/16 07:00 Pulse 98 08/06/16 07:25 Resp 18 08/06/16 07:00 BP 134/71 08/06/16 07:00 Pulse Ox 94 L 08/06/16 07:03 Intake & Output 08/05/16 08/06/16 08/06/16 18:59 06:59 18:59 Intake Total 640 880 Output Total 1100 600 Balance -460 280 Weight 68.039 kg Intake: IV 160 880 Sodium Chloride 0.9% 1, 160 880 000 ml @ 80 mls/hr IV . [id number] [facility] Rx#:[id number] Oral 480 Output: Urine 1100 600 Other: Voiding Method Urinal Urinal # Voids 1 - Exam General appearance: severe distress - EENT Eyes: EOMI, PERRLA, no ptosis, no scleral icterus, normal appearance ENT: NA/AT, normal oropharynx, no thrush, no tonsillar exudates Ears: bilateral: normal - Neck Neck: no lymphadenopathy, no normal ROM, no rigidity, no stridor, no thyromegaly Carotids: bilateral: upstroke delayed Thyroid: bilateral: normal size - Respiratory Respiratory: bilateral: diminished, rhonchi, wheezing, prolonged expiration, negative: dullness, rales - Cardiovascular Rhythm: regular Heart sounds: normal: S1, S2 Abnormal Heart Sounds: systolic murmur, no S3 Gallop, no S4 Gallop, no click - Gastrointestinal General gastrointestinal: normal bowel sounds, soft, no splenomegaly, no tenderness, no umbilical hernia, no ventral hernia - Integumentary Integumentary: normal, normal turgor - Neurologic Neurologic: CNII-XII intact - Musculoskeletal Musculoskeletal: generalized weakness - Psychiatric Psychiatric: A&O x's 3, appropriate affect, intact judgment & insight - Labs CBC & Chem 7: 08/05/16 07:42 08/05/16 07:42 Labs: Abnormal Lab Results - Last 24 Hours (Table) 08/05/16 08/05/16 08/05/16 Range/Units 11:38 16:40 20:03 POC Glucose (mg/dL) 129 H 137 H 124 H (75-99) mg/dL 08/06/16 Range/Units 07:21 POC Glucose (mg/dL) 121 H (75-99) mg/dL Assessment and Plan Plan: 1. Acute respiratory failure secondary to acute exacerbation of the severe COPD with acute bronchitis. On Decadron 4mg IV push every 12 hours, continue patient on DuoNeb 3 mg nebulization 4 times every day, continue patient on Pulmicort 1 mg nebulization twice every day, continue oxygen support, continue Levaquin 500 mg PO every 24 hours, Mucinex 1200 mg orally twice every day, pulmonary consultation from Dr. Naik. 2. 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 Patient will need to be evaluated by cardiology as an outpatient. We' ll continue to monitor his cardiac enzymes every 8 hours for the next 24 hours. 3. Hypertension and hypertensive cardiovascular disease. Continue amlodipine 10 mg orally once every day. 4. Hyperlipidemia. Continue simvastatin 5 mg at bedtime. 5. Thyroidism. Continue Synthroid 50 g orally once every day. 6. Chronic tobacco use and dependence. Abstinence from smoking. 7. Laryngeal cancer status post rotation therapy. Stable. 8. Chronic low back pain. Continue Robaxin. 9. Steroid-induced hyperglycemia. We'll start the patient on the sliding scale insulin. 10. DVT prophylaxis. Heparin 5000 units subcutaneously every 12 hours, bilateral knee-high POORNIMA hose. 11. GI prophylaxis. Protonix 40 mg orally once every day. Discharge plan: Home Impression and plan of care have been directed as dictated by the signing physician. Joana Mcknight nurse practitioner acting as scribe for signing physician. Time with Patient: Greater than 30
[2016-08-06] MEDS: LEVOFLOXACIN 500 MG TAB PO SCH (16:03)
[2016-08-06 16:52] LABS: Glucose,Whole Blood 125 mg/dL (75-99)
[2016-08-06] MEDS: HYDROcodone/APAP 10-325MG 1 EACH TAB PO PRN (18:26)
[2016-08-06 21:07] LABS: Glucose,Whole Blood 115 mg/dL (75-99)
[2016-08-06] MEDS: TERAZOSIN 5 MG CAP PO SCH (21:21)
[2016-08-07] MEDS: IPRATROPIUM-ALBUTEROL 3 ML NEB INHALATION PRN ×4 (01:04→21:37)
[2016-08-07] MEDS: LEVOTHYROXINE 50 MCG TAB PO SCH (06:13)
[2016-08-07 07:02] LABS: Glucose,Whole Blood 126 mg/dL (75-99)
[2016-08-07] MEDS: INSULIN LISPRO (humaLOG) 300 UNIT/3 ML VIAL SQ SCH ×3 (07:40→18:00)
[2016-08-07] MEDS: IPRATROPIUM-ALBUTEROL 3 ML NEB INHALATION SCH ×4 (07:40→18:59)
[2016-08-07] MEDS: THEOPHYLLINE 100 MG PO SCH (07:41)
[2016-08-07] MEDS: BUDESONIDE 1 MG/2 ML NEBU INHALATION SCH (07:41)
[2016-08-07] MEDS: PANTOPRAZOLE 40 MG TABLET PO SCH (07:41)
[2016-08-07] MEDS: FORMOTEROL FUMARATE 20 MCG/2 ML NEBU INHALATION SCH (07:41)
[2016-08-07] MEDS: MAGNESIUM OXIDE 400 MG TAB PO SCH (07:42)
[2016-08-07] MEDS: ATORVASTATIN 10 MG TAB PO SCH (07:42)
[2016-08-07] MEDS: amLODIPine 10 MG TAB PO SCH (07:42)
[2016-08-07] MEDS: MONTELUKAST 10 MG TAB PO SCH (07:42)
[2016-08-07] MEDS: ENOXAPARIN 40 MG/0.4 ML SYRINGE SQ SCH (07:42)
[2016-08-07 09:49] LABS: CH 32.1; CHCM 33.2; HCT 43.7 % (39.0-53.0); HDW 2.61; MCH 31.2 pg (25.0-35.0); MCV 97.4 fL (80.0-100.0); RBC 4.49 m/uL (4.30-5.90); RDW 14.4 % (11.5-15.5); WBC 10.8 k/uL (3.8-10.6)
[2016-08-07 10:10] LABS: Anion Gap 8 mmol/L; Blood Urea Nitrogen 37 mg/dL (9-20); Calcium 9.6 mg/dL (8.4-10.2); Carbon Dioxide 31 mmol/L (22-30); Chloride 100 mmol/L (98-107); Glucose 121 mg/dL (74-99); Non-African American GFR(MDRD) >60 (>60 ml/min/1.73 sqM); Potassium 4.4 mmol/L (3.5-5.1); Sodium 139 mmol/L (137-145)
[2016-08-07] MEDS ORDERED: FUROSEMIDE 10 MG/ML 4 ML VIAL IV STA (11:18)
[2016-08-07 11:24] LABS: Glucose,Whole Blood 92 mg/dL (75-99)
--- NOTE | 2016-08-07 12:16 | XR ---
EXAMINATION TYPE: XR chest 1V portable DATE OF EXAM: 08/07/2016 11:38 AM HISTORY: Shortness of breath. COMPARISON: 08/03/2016 TECHNIQUE: Single view of the chest is submitted. FINDINGS: Demonstrated are scattered senescent parenchymal change. Hyperinflation compatible with COPD. Granul jose right lower lobe. There is no evidence for focal infiltrate. The heart is stable. Hilar and mediastinal structures are within normal limits. Degenerative changes are seen of the dorsal spine. IMPRESSION: 1. Chronic changes without evidence for acute pulmonary disease.
[2016-08-07] MEDS: NICOTINE 21MG/24HR PATCH TRANSDERM SCH (12:37)
[2016-08-07] MEDS: DEXAMETHASONE SOD PHOSPHATE 4 MG/ML 1 ML VIAL IV SCH ×3 (13:13→23:57)
--- NOTE | 2016-08-07 14:20 | P.PN ---
Subjective This is a 76-year-old male one of Dr. 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 Boo currently on oxygen, hypertension and hypertensive cardio vascular disease, laryngeal cancer, status post radiation therapy, hypothyroidism, outpatient was in his usual state of health about a week ago when he developed to have an increased shortness breath associated with increased cough minimal phlegm production patient stated that he has been on a steroid pack for quite sometime did not do much for him patient ended up coming to the ER today because he could not breathe despite the fact he has been using his nebulized treatment [id number] and oxygen without any help patient had a chest x-ray that was negative, but for right pulmonary nodule, patient also was found to have a minimal leukocytosis, with minimal left shift, he had a low-grade temperature in the ER, patient was admitted to the hospital for acute respiratory failure due to COPD exacerbation. 08/04: still very short of breath will start Decadron 4 mg IVP q 8 h and will add Pulmicort 1 mg neb bid along with Performist bid,pulmonary to see the patient. 08/05: Lungs are present at the same from yesterday. He will continue on Decadron at the same dose. IV fluids will be changed to saline lock and patient will be given 1 dose of IV Lasix. He has continued on DuoNeb treatments and Pulmicort, Levaquin and theophylline. 08/06: Respiratory status is improving slowly. He states he had a rough night but feeling much improved this morning. Decadron will be decreased to 4 mg IV every 12 hours. Patient denies any chest pain. He is very anxious to be discharged, possibly by tomorrow. 08/07: Patient had episode of severe shortness of breath possibly after Pulmicort nebulizer treatment. His pulse ox dropped down to 82% and he was placed on nonrebreather with pulse ox up to 97%. He is now on nasal cannula. He has increased shortness of breath and tightness. Depo-Medrol currently at 4 mg every 12 hours will be changed every 8 hours. Lasix 1 to be given. Repeat chest x-ray shows chronic changes without acute pulmonary disease. Objective - Vital Signs Vital signs: Vital Signs Temp 97.7 F 08/07/16 07:00 Pulse 118 H 08/07/16 10:59 Resp 18 04/26/17 07:00 BP 136/82 08/07/16 07:00 Pulse Ox 94 L 08/07/16 07:43 Intake & Output 08/06/16 08/07/16 08/07/16 18:59 06:59 18:59 Intake Total 600 360 Output Total 100 925 125 Balance 500 -925 235 Intake: Oral 600 360 Output: Urine 100 925 125 Other: Voiding Method Urinal Urinal - Exam General appearance: severe distress - EENT Eyes: EOMI, PERRLA, no ptosis, no scleral icterus, normal appearance ENT: NA/AT, normal oropharynx, no thrush, no tonsillar exudates Ears: bilateral: normal - Neck Neck: no lymphadenopathy, no normal ROM, no rigidity, no stridor, no thyromegaly Carotids: bilateral: upstroke delayed Thyroid: bilateral: normal size - Respiratory Respiratory: bilateral: diminished, rhonchi, wheezing, prolonged expiration, negative: dullness, rales - Cardiovascular Rhythm: regular Heart sounds: normal: S1, S2 Abnormal Heart Sounds: systolic murmur, no S3 Gallop, no S4 Gallop, no click - Gastrointestinal General gastrointestinal: normal bowel sounds, soft, no splenomegaly, no tenderness, no umbilical hernia, no ventral hernia - Integumentary Integumentary: normal, normal turgor - Neurologic Neurologic: CNII-XII intact - Musculoskeletal Musculoskeletal: generalized weakness - Psychiatric Psychiatric: A&O x's 3, appropriate affect, intact judgment & insight - Labs CBC & Chem 7: 08/07/16 09:11 08/07/16 09:11 Labs: Abnormal Lab Results - Last 24 Hours (Table) 08/06/16 08/06/16 08/06/16 Range/Units 12:27 16:51 20:49 WBC (3.8-10.6) k/uL Carbon Dioxide (22-30) mmol/L BUN (9-20) mg/dL Glucose (74-99) mg/dL POC Glucose (mg/dL) 117 H 125 H 115 H (75-99) mg/dL 08/07/16 08/07/16 08/07/16 Range/Units 06:59 09:11 09:11 WBC 10.8 H (3.8-10.6) k/uL Carbon Dioxide 31 H (22-30) mmol/L BUN 37 H (9-20) mg/dL Glucose 121 H (74-99) mg/dL POC Glucose (mg/dL) 126 H (75-99) mg/dL Assessment and Plan Plan: 1. Acute hypoxic respiratory failure secondary to acute exacerbation of the severe COPD with acute bronchitis. On Decadron 4mg IV push every 8hours, continue patient on DuoNeb 3 mg nebulization 4 times every day, continue patient on Pulmicort 1 mg nebulization twice every day, continue oxygen support , continue Levaquin 500 mg PO every 24 hours, Mucinex 1200 mg orally twice every day, pulmonary consultation from Dr. Naik. 2. 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 Patient will need to be evaluated by cardiology as an outpatient. We' ll continue to monitor his cardiac enzymes every 8 hours for the next 24 hours. 3. Hypertension and hypertensive cardiovascular disease. Continue amlodipine 10 mg orally once every day. 4. Hyperlipidemia. Continue simvastatin 5 mg at bedtime. 5. Thyroidism. Continue Synthroid 50 g orally once every day. 6. Chronic tobacco use and dependence. Abstinence from smoking. 7. Laryngeal cancer status post rotation therapy. Stable. 8. Chronic low back pain. Continue Robaxin. 9. Steroid-induced hyperglycemia. We'll start the patient on the sliding scale insulin. 10. DVT prophylaxis. Heparin 5000 units subcutaneously every 12 hours, bilateral knee-high POORNIMA hose. 11. GI prophylaxis. Protonix 40 mg orally once every day. Discharge plan: Home Impression and plan of care have been directed as dictated by the signing physician. Joana Mcknight nurse practitioner acting as scribe for signing physician. Time with Patient: Greater than 30
[2016-08-07 14:51] LABS: Magnesium 2.3 mg/dL (1.6-2.3)
[2016-08-07] MEDS ORDERED: DEXAMETHASONE SOD PHOSPHATE 4 MG/ML 1 ML VIAL IV SCH (16:00)
[2016-08-07] MEDS ORDERED: FUROSEMIDE 10 MG/ML 2 ML VIAL IV ONE (16:38)
[2016-08-07 17:19] LABS: Glucose,Whole Blood 145 mg/dL (75-99)
--- NOTE | 2016-08-07 18:00 | P.PN ---
Subjective This is a very pleasant 76-year-old gentleman who follows with Dr. 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 He also has a history of hypertension hypothyroidism gastroesophageal reflux disease and hyperlipidemia. He does have a history of laryngeal cancer status post radiation. He had presented here on 08/03/2016 with complaints of increasing shortness of breath cough and congestion. His chest x-ray revealed no acute pulmonary process. He is seen again today in follow-up on the regular medical floor. He is awake and alert in no acute distress. He is breathing better today as compared to yesterday but not quite back to his baseline. He is still somewhat bronchospastic and wheezy. He is requiring 4 L/m per nasal cannula to maintain O2 saturations in the mid 90s. On the patient is being seen in follow-up. The patient is feeling slightly better. Less short of breath compared to yesterday. He is cough and congestion is improved. No chest pain. No pleurisy. No change in mental status. No other complaints otherwise. The patient on Decadron as the patient is unable to tolerate any other form of steroids. Note that he is also on empiric antibiotic coverage with Levaquin 500 mg by mouth daily. On , the patient is being seen in follow-up. He was doing relatively well earlier this morning however he progressively got worse and this afternoon the patient was having more difficulty breathing and he was sitting at edge of the bed, coughing, congested, having extremity wheezes and this can be heard throughout the lung puentes bilaterally. At one point he was having also difficulties in completing full sentences. He was taking Pulmicort and he states that he could have been potentially having an ALLERGIC reaction or an adverse reaction to Pulmicort. Nevertheless the patient has been maintained on a combination of Symbicort and Spiriva on outpatient basis and he has been able to tolerate his medications without any major difficulties. He is unable to take of his Sinemet on for that reason he is on Decadron. His chest x-ray showed COPD with increased interstitial markings. The patient was given 40 mg IV Lasix and he has diuresed more than 300 mL of urine output. At this point in time, it's reasonable to move this patient to selective unit for further monitoring. He may need BiPAP for respiratory support. He is on Levaquin as a broad-spectrum antibiotic coverage regarding his COPD exacerbation. Objective - Vital Signs Vital signs: Vital Signs Temp 97.7 F 08/07/16 15:00 Pulse 124 H 08/07/16 16:14 Resp 18 08/07/16 15:00 BP 142/69 08/07/16 15:00 Pulse Ox 94 L 08/07/16 15:00 Intake & Output 08/06/16 08/07/16 08/07/16 18:59 06:59 18:59 Intake Total 600 840 Output Total 819 401 3542 Balance 500 -925 -260 Intake: Oral 600 840 Output: Urine 615 287 3603 Other: Voiding Method Urinal Urinal Urinal - Exam The patient appeared well nourished and normally developed. the patient is more short of breath compared to yesterday and his having difficulties in breathing even at rest.Vital signs as documented. Head exam is unremarkable. No scleral icterus or corneal arcus noted. Neck is without jugular venous distension, thyromegaly, or carotid bruits. Carotid upstrokes are brisk bilaterally. Lung examination shows diminished breath sounds bilaterally along with prolongation of expiratory phase of breathing and scattered external wheezes. Cardiac exam reveals the PMI to be normally sized and situated. Rhythm is regular. First and second heart sounds normal. No murmurs, rubs or gallops. Abdominal exam reveals normal bowel sounds, no masses, no organomegaly and no aortic enlargement. Extremities are nonedematous and both femoral and pedal pulses are normal. - Labs CBC & Chem 7: 08/07/16 09:11 08/07/16 09:11 Labs: Abnormal Lab Results - Last 24 Hours (Table) 08/06/16 08/07/16 08/07/16 Range/Units 20:49 06:59 09:11 WBC 10.8 H (3.8-10.6) k/uL Carbon Dioxide (22-30) mmol/L BUN (9-20) mg/dL Glucose (74-99) mg/dL POC Glucose (mg/dL) 115 H 126 H (75-99) mg/dL 08/07/16 08/07/16 Range/Units 09:11 17:17 WBC (3.8-10.6) k/uL Carbon Dioxide 31 H (22-30) mmol/L BUN 37 H (9-20) mg/dL Glucose 121 H (74-99) mg/dL POC Glucose (mg/dL) 145 H (75-99) mg/dL Assessment and Plan Plan: Impression: #1 Acute exacerbation of chronic obstructive pulmonary disease. on 08/07/2016, the patient was reevaluated and the patient is having worsening shortness of breath. Rule out COPD exacerbation. Rule out component of fluid overload. Rule out adverse reaction to the various inhalers including the possibility of an adverse reaction to either to Perforomist or Pulmicort. #2 Chronic and ongoing tobacco dependence. #3 Daily alcohol use. #4 History of laryngeal cancer status post radiation. #5 Hyperlipidemia. #6 Hyper tension. #7 Hypothyroidism. SALINAS we'll move this patient to selective unit for further monitoring. The patient was be given BiPAP for respiratory support at the pressure of 10/5 cm of water and this will be further adjusted based on his tidal volumes and his compliance and comfort. Meanwhile, the patient will be given IV Decadron and I'll increase the dose to 6 mg every 6 hours. I will stop the Perforomist and Pulmicort and put the patient on his usual medication which included a combination of Symbicort 160/4.52 puffs twice a day and tiotropium 1 inhalation a day. We'll give the patient additional dose of Lasix 20 mg IV this afternoon. Continue the Levaquin. Chest x-ray was reviewed. Continue day DuoNeb neb last treatment [id number]. We'll continue to follow.
[2016-08-07] MEDS: LEVOFLOXACIN 500 MG TAB PO SCH (18:04)
[2016-08-07] MEDS ORDERED: ALPRAZolam 0.25 MG TAB PO STA (19:27)
[2016-08-07] MEDS: TERAZOSIN 5 MG CAP PO SCH (20:43)
[2016-08-07] MEDS: SYMBICORT 160-4.5 MCG INHALER INHALATION SCH (21:10)
[2016-08-07 22:31] LABS: Glucose,Whole Blood 117 mg/dL (75-99)
[2016-08-08] MEDS: IPRATROPIUM-ALBUTEROL 3 ML NEB INHALATION PRN ×2 (03:36→09:40)
[2016-08-08 06:26] LABS: CH 32.5; CHCM 33.6; HCT 41.8 % (39.0-53.0); HDW 2.56; MCH 32.6 pg (25.0-35.0); MCHC 33.5 g/dL (31.0-37.0); MCV 97.3 fL (80.0-100.0); RDW 14.2 % (11.5-15.5); WBC 10.1 k/uL (3.8-10.6)
[2016-08-08] MEDS: DEXAMETHASONE SOD PHOSPHATE 4 MG/ML 1 ML VIAL IV SCH ×4 (06:26→23:24)
[2016-08-08 06:27] LABS: Glucose,Whole Blood 122 mg/dL (75-99)
[2016-08-08] MEDS: LEVOTHYROXINE 50 MCG TAB PO SCH (06:27)
[2016-08-08] MEDS: PANTOPRAZOLE 40 MG TABLET PO SCH (06:27)
[2016-08-08] MEDS: INSULIN LISPRO (humaLOG) 300 UNIT/3 ML VIAL SQ SCH ×3 (06:28→16:44)
[2016-08-08 06:38] LABS: ALT 68 U/L (21-72); AST 71 U/L (17-59); Alkaline Phosphatase 56 U/L (38-126); Anion Gap 8 mmol/L; Blood Urea Nitrogen 41 mg/dL (9-20); Calcium 9.4 mg/dL (8.4-10.2); Carbon Dioxide 35 mmol/L (22-30); Chloride 96 mmol/L (98-107); Glucose 115 mg/dL (74-99); Non-African American GFR(MDRD) >60 (>60 ml/min/1.73 sqM); Potassium 4.3 mmol/L (3.5-5.1); Sodium 139 mmol/L (137-145); Total Bilirubin 0.5 mg/dL (0.2-1.3)
[2016-08-08] MEDS: IPRATROPIUM-ALBUTEROL 3 ML NEB INHALATION SCH ×4 (07:30→20:30)
[2016-08-08] MEDS: SYMBICORT 160-4.5 MCG INHALER INHALATION SCH ×2 (07:31→20:30)
[2016-08-08] MEDS ORDERED: TIOTROPIUM 18 MCG/PUFF INHALER INHALATION SCH (08:00)
[2016-08-08] MEDS: amLODIPine 10 MG TAB PO SCH (08:01)
[2016-08-08] MEDS: ATORVASTATIN 10 MG TAB PO SCH (08:01)
[2016-08-08] MEDS: FUROSEMIDE 10 MG/ML 2 ML VIAL IV SCH (08:01)
[2016-08-08] MEDS: ENOXAPARIN 40 MG/0.4 ML SYRINGE SQ SCH (08:01)
[2016-08-08] MEDS: NICOTINE 21MG/24HR PATCH TRANSDERM SCH (08:01)
[2016-08-08] MEDS: THEOPHYLLINE 100 MG PO SCH (08:02)
[2016-08-08] MEDS: MAGNESIUM OXIDE 400 MG TAB PO SCH (08:02)
[2016-08-08] MEDS: MONTELUKAST 10 MG TAB PO SCH (08:02)
[2016-08-08 11:58] LABS: Glucose,Whole Blood 126 mg/dL (75-99)
[2016-08-08] MEDS: NYSTATIN 100,000 UNIT/ML SUSP 500,000 UNIT/5 ML CUP PO SCH ×4 (12:22→21:09)
[2016-08-08] MEDS: ALPRAZolam 0.5 MG TAB PO PRN (12:35)
--- NOTE | 2016-08-08 13:44 | P.PN ---
Subjective This is a 76-year-old male one of Dr. 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 Boo currently on oxygen, hypertension and hypertensive cardio vascular disease, laryngeal cancer, status post radiation therapy, hypothyroidism, outpatient was in his usual state of health about a week ago when he developed to have an increased shortness breath associated with increased cough minimal phlegm production patient stated that he has been on a steroid pack for quite sometime did not do much for him patient ended up coming to the ER today because he could not breathe despite the fact he has been using his nebulized treatment [id number] and oxygen without any help patient had a chest x-ray that was negative, but for right pulmonary nodule, patient also was found to have a minimal leukocytosis, with minimal left shift, he had a low-grade temperature in the ER, patient was admitted to the hospital for acute respiratory failure due to COPD exacerbation. 08/04: still very short of breath will start Decadron 4 mg IVP q 8 h and will add Pulmicort 1 mg neb bid along with Performist bid,pulmonary to see the patient. 08/05: Lungs are present at the same from yesterday. He will continue on Decadron at the same dose. IV fluids will be changed to saline lock and patient will be given 1 dose of IV Lasix. He has continued on DuoNeb treatments and Pulmicort, Levaquin and theophylline. 08/06: Respiratory status is improving slowly. He states he had a rough night but feeling much improved this morning. Decadron will be decreased to 4 mg IV every 12 hours. Patient denies any chest pain. He is very anxious to be discharged, possibly by tomorrow. 08/07: Patient had episode of severe shortness of breath possibly after Pulmicort nebulizer treatment. His pulse ox dropped down to 82% and he was placed on nonrebreather with pulse ox up to 97%. He is now on nasal cannula. He has increased shortness of breath and tightness. Depo-Medrol currently at 4 mg every 12 hours will be changed every 8 hours. Lasix 1 to be given. Repeat chest x-ray shows chronic changes without acute pulmonary disease. 08/08: Patient had another episode of acute respiratory failure yesterday that he was transferred to the selective care unit. He was given an additional dose of Lasix yesterday afternoon. Decadron was increased to 6 mg IV every 6 hours. He has had good urine output. He was not able to tolerate BiPAP. Patient started on nystatin for thrush. Objective - Vital Signs Vital signs: Vital Signs Temp 98.3 F 08/08/16 04:00 Pulse 110 H 08/08/16 07:47 Resp 20 08/08/16 04:00 BP 121/78 08/08/16 04:00 Pulse Ox 93 L 08/08/16 04:00 Intake & Output 08/07/16 08/08/16 08/08/16 18:59 06:59 18:59 Intake Total 840 480 100 Output Total 1100 700 Balance -260 -220 100 Weight 70.1 kg Intake: Oral 840 480 100 Output: Urine 1100 700 Other: Voiding Method Urinal Urinal # Voids 1 - Exam General appearance: severe distress - EENT Eyes: EOMI, PERRLA, no ptosis, no scleral icterus, normal appearance ENT: NA/AT, normal oropharynx, no thrush, no tonsillar exudates Ears: bilateral: normal - Neck Neck: no lymphadenopathy, no normal ROM, no rigidity, no stridor, no thyromegaly Carotids: bilateral: upstroke delayed Thyroid: bilateral: normal size - Respiratory Respiratory: bilateral: diminished, rhonchi, wheezing, prolonged expiration, negative: dullness, rales - Cardiovascular Rhythm: regular Heart sounds: normal: S1, S2 Abnormal Heart Sounds: systolic murmur, no S3 Gallop, no S4 Gallop, no click - Gastrointestinal General gastrointestinal: normal bowel sounds, soft, no splenomegaly, no tenderness, no umbilical hernia, no ventral hernia - Integumentary Integumentary: normal, normal turgor - Neurologic Neurologic: CNII-XII intact - Musculoskeletal Musculoskeletal: generalized weakness - Psychiatric Psychiatric: A&O x's 3, appropriate affect, intact judgment & insight - Labs CBC & Chem 7: 08/08/16 05:23 08/08/16 05:23 Labs: Abnormal Lab Results - Last 24 Hours (Table) 08/07/16 08/07/16 08/07/16 Range/Units 09:11 09:11 17:17 WBC 10.8 H (3.8-10.6) k/uL Plt Count (150-450) k/uL Chloride (98-107) mmol/L Carbon Dioxide 31 H (22-30) mmol/L BUN 37 H (9-20) mg/dL Glucose 121 H (74-99) mg/dL POC Glucose (mg/dL) 145 H (75-99) mg/dL AST (17-59) U/L Total Protein (6.3-8.2) g/dL 08/07/16 08/08/16 08/08/16 Range/Units 22:29 05:23 05:23 WBC (3.8-10.6) k/uL Plt Count 140 L (150-450) k/uL Chloride 96 L (98-107) mmol/L Carbon Dioxide 35 H (22-30) mmol/L BUN 41 H (9-20) mg/dL Glucose 115 H (74-99) mg/dL POC Glucose (mg/dL) 117 H (75-99) mg/dL AST 71 H (17-59) U/L Total Protein 6.0 L (6.3-8.2) g/dL 08/08/16 Range/Units 06:21 WBC (3.8-10.6) k/uL Plt Count (150-450) k/uL Chloride (98-107) mmol/L Carbon Dioxide (22-30) mmol/L BUN (9-20) mg/dL Glucose (74-99) mg/dL POC Glucose (mg/dL) 122 H (75-99) mg/dL AST (17-59) U/L Total Protein (6.3-8.2) g/dL Assessment and Plan Plan: 1. Acute hypoxic respiratory failure secondary to acute exacerbation of the severe COPD with acute bronchitis. On Decadron 6mg IV push every 6 hours, continue patient on DuoNeb 3 mg nebulization 4 times every day, continue patient on Pulmicort 1 mg nebulization twice every day, continue oxygen support , continue Levaquin 500 mg PO every 24 hours, Mucinex 1200 mg orally twice every day, pulmonary consultation from Dr. Boo. 2. 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 Patient will need to be evaluated by cardiology as an outpatient. We' ll continue to monitor his cardiac enzymes every 8 hours for the next 24 hours. 3. Hypertension and hypertensive cardiovascular disease. Continue amlodipine 10 mg orally once every day. 4. Hyperlipidemia. Continue simvastatin 5 mg at bedtime. 5. Thyroidism. Continue Synthroid 50 g orally once every day. 6. Chronic tobacco use and dependence. Abstinence from smoking. 7. Laryngeal cancer status post rotation therapy. Stable. 8. Chronic low back pain. Continue Robaxin. 9. Steroid-induced hyperglycemia. We'll start the patient on the sliding scale insulin. 10. DVT prophylaxis. Heparin 5000 units subcutaneously every 12 hours, bilateral knee-high POORNIMA hose. 11. GI prophylaxis. Protonix 40 mg orally once every day. 12. Fluid overload due to IV steroids. Patient started on Lasix 20 mg IV daily. Discharge plan: Home Impression and plan of care have been directed as dictated by the signing physician. Joana Mcknight nurse practitioner acting as scribe for signing physician. Time with Patient: Greater than 30
--- NOTE | 2016-08-08 14:03 | P.PN ---
Subjective Principal diagnosis: COPD exacerbation This is a very pleasant 76-year-old gentleman who follows with Dr. 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 He also has a history of hypertension hypothyroidism gastroesophageal reflux disease and hyperlipidemia. He does have a history of laryngeal cancer status post radiation. He had presented here on 08/03/2016 with complaints of increasing shortness of breath cough and congestion. His chest x-ray revealed no acute pulmonary process. He is seen again today in follow-up on the regular medical floor. He is awake and alert in no acute distress. He is breathing better today as compared to yesterday but not quite back to his baseline. He is still somewhat bronchospastic and wheezy. He is requiring 4 L/m per nasal cannula to maintain O2 saturations in the mid 90s. On the patient is being seen in follow-up. The patient is feeling slightly better. Less short of breath compared to yesterday. He is cough and congestion is improved. No chest pain. No pleurisy. No change in mental status. No other complaints otherwise. The patient on Decadron as the patient is unable to tolerate any other form of steroids. Note that he is also on empiric antibiotic coverage with Levaquin 500 mg by mouth daily. On , the patient is being seen in follow-up. He was doing relatively well earlier this morning however he progressively got worse and this afternoon the patient was having more difficulty breathing and he was sitting at edge of the bed, coughing, congested, having extremity wheezes and this can be heard throughout the lung puentes bilaterally. At one point he was having also difficulties in completing full sentences. He was taking Pulmicort and he states that he could have been potentially having an ALLERGIC reaction or an adverse reaction to Pulmicort. Nevertheless the patient has been maintained on a combination of Symbicort and Spiriva on outpatient basis and he has been able to tolerate his medications without any major difficulties. He is unable to take of his Sinemet on for that reason he is on Decadron. His chest x-ray showed COPD with increased interstitial markings. The patient was given 40 mg IV Lasix and he has diuresed more than 300 mL of urine output. At this point in time, it's reasonable to move this patient to selective unit for further monitoring. He may need BiPAP for respiratory support. He is on Levaquin as a broad-spectrum antibiotic coverage regarding his COPD exacerbation. The patient was seen again today 08/08/2016 in follow-up on the selective care unit. He is awake and alert in no acute distress. He was struggling a bit yesterday but is improved somewhat today. He is still dyspneic on minimal exertion. He was not able to tolerate the BiPAP last evening. He is currently maintaining O2 saturations in the 90s on room air. He is still bronchospastic and wheezy. Objective - Vital Signs Vital signs: Vital Signs Temp 96.8 F L 08/08/16 11:53 Pulse 104 H 08/08/16 12:17 Resp 20 08/08/16 11:53 BP 147/65 08/08/16 11:53 Pulse Ox 92 L 08/08/16 11:53 Intake & Output 08/07/16 08/08/16 08/08/16 18:59 06:59 18:59 Intake Total 840 480 100 Output Total 1100 700 250 Balance -260 -220 -150 Weight 70.1 kg Intake: Oral 840 480 100 Output: Urine 1100 700 250 Other: Voiding Method Urinal Urinal Urinal # Voids 1 - Exam GENERAL EXAM: Alert, comfortable in no apparent distress. HEAD: Normocephalic. EYES: Normal reaction of pupils, equal size. NOSE: Clear with pink turbinates. THROAT: No erythema or exudates. NECK: No masses, no JVD. CHEST: No chest wall deformity. LUNGS: Equal air entry with bilateral wheeze. Diminished throughout. CVS: S1 and S2 normal with no audible murmur, regular rhythm. ABDOMEN: No hepatosplenomegaly, normal bowel sounds, no guarding or rigidity. SPINE: No scoliosis or deformity SKIN: No rashes CENTRAL NERVOUS SYSTEM: No focal deficits, tone is normal in all 4 extremities. Extremities: There is no significant peripheral edema. No clubbing, no cyanosis. Peripheral pulses are intact. - Labs CBC & Chem 7: 08/08/16 05:23 08/08/16 05:23 Labs: Abnormal Lab Results - Last 24 Hours (Table) 08/07/16 08/07/16 08/08/16 Range/Units 17:17 22:29 05:23 Plt Count 140 L (150-450) k/uL Chloride (98-107) mmol/L Carbon Dioxide (22-30) mmol/L BUN (9-20) mg/dL Glucose (74-99) mg/dL POC Glucose (mg/dL) 145 H 117 H (75-99) mg/dL AST (17-59) U/L Total Protein (6.3-8.2) g/dL 08/08/16 08/08/16 08/08/16 Range/Units 05:23 06:21 11:56 Plt Count (150-450) k/uL Chloride 96 L (98-107) mmol/L Carbon Dioxide 35 H (22-30) mmol/L BUN 41 H (9-20) mg/dL Glucose 115 H (74-99) mg/dL POC Glucose (mg/dL) 122 H 126 H (75-99) mg/dL AST 71 H (17-59) U/L Total Protein 6.0 L (6.3-8.2) g/dL Assessment and Plan Plan: Impression: #1 Acute exacerbation of chronic obstructive pulmonary disease. #2 Chronic and ongoing tobacco dependence. #3 Daily alcohol use. #4 History of laryngeal cancer status post radiation. #5 Hyperlipidemia. #6 Hyper tension. #7 Hypothyroidism. Plan: The patient was seen and evaluated by Dr. Boo. He is slow to progress but improving. He was transferred up to the selective care unit yesterday after having significant shortness of breath, chest tightness and wheezing. He was unable to tolerate the BiPAP. He was diuresed. We'll continue with his current medications including bronchodilators along with Perforomist inhalations twice a day. He is on Decadron. Continue Singulair and theophylline. Continue empiric antibiotics in the form of Levaquin. He is again educated regarding the importance of complete smoking cessation. NicoDerm patch is in place. We will increase his activity as tolerated. We'll continue to follow.
[2016-08-08] MEDS: LEVOFLOXACIN 500 MG TAB PO SCH (16:43)
[2016-08-08 16:46] LABS: Glucose,Whole Blood 156 mg/dL (75-99)
[2016-08-08] MEDS: HYDROcodone/APAP 10-325MG 1 EACH TAB PO PRN (19:14)
[2016-08-08] MEDS: TERAZOSIN 5 MG CAP PO SCH (21:08)
[2016-08-08] MEDS: PANTOPRAZOLE 40 MG/10 ML VIAL IVP SCH (21:09)
[2016-08-08] MEDS: METHOCARBAMOL 750 MG TAB PO PRN (21:13)
[2016-08-08 21:18] LABS: Glucose,Whole Blood 151 mg/dL (75-99)
[2016-08-09] MEDS: IPRATROPIUM-ALBUTEROL 3 ML NEB INHALATION PRN (05:44)
[2016-08-09] MEDS: LEVOTHYROXINE 50 MCG TAB PO SCH (06:26)
[2016-08-09] MEDS: DEXAMETHASONE SOD PHOSPHATE 4 MG/ML 1 ML VIAL IV SCH (06:26)
[2016-08-09] MEDS: INSULIN LISPRO (humaLOG) 300 UNIT/3 ML VIAL SQ SCH ×3 (06:26→17:12)
[2016-08-09 06:27] LABS: Glucose,Whole Blood 143 mg/dL (75-99)
[2016-08-09] MEDS: SYMBICORT 160-4.5 MCG INHALER INHALATION SCH ×2 (07:36→20:51)
[2016-08-09] MEDS: IPRATROPIUM-ALBUTEROL 3 ML NEB INHALATION SCH ×4 (07:36→20:51)
[2016-08-09] MEDS: TIOTROPIUM 18 MCG/PUFF INHALER INHALATION SCH (07:53)
[2016-08-09] MEDS: amLODIPine 10 MG TAB PO SCH (08:18)
[2016-08-09] MEDS: MONTELUKAST 10 MG TAB PO SCH (08:19)
[2016-08-09] MEDS: NICOTINE 21MG/24HR PATCH TRANSDERM SCH (08:19)
[2016-08-09] MEDS: ENOXAPARIN 40 MG/0.4 ML SYRINGE SQ SCH (08:19)
[2016-08-09] MEDS: MAGNESIUM OXIDE 400 MG TAB PO SCH (08:19)
[2016-08-09] MEDS: NYSTATIN 100,000 UNIT/ML SUSP 500,000 UNIT/5 ML CUP PO SCH ×4 (08:20→20:46)
[2016-08-09] MEDS: ATORVASTATIN 10 MG TAB PO SCH (08:20)
[2016-08-09] MEDS: PANTOPRAZOLE 40 MG/10 ML VIAL IVP SCH ×2 (08:20→20:45)
[2016-08-09] MEDS: THEOPHYLLINE 100 MG PO SCH (08:21)
[2016-08-09] MEDS: FUROSEMIDE 10 MG/ML 2 ML VIAL IV SCH (08:22)
[2016-08-09] MEDS ORDERED: ALBUTEROL NEBULIZED 2.5 MG/3 ML INHALATION PRN (09:15)
[2016-08-09] MEDS: DEXAMETHASONE SOD PHOSPHATE 10 MG/ML 1 ML VIAL IV SCH ×3 (09:54→23:39)
[2016-08-09] MEDS ORDERED: ALBUTEROL INHALER 60 PUFF/8 GM INHALER INHALATION PRN (10:04)
[2016-08-09] MEDS: ALBUTEROL NEBULIZED 2.5 MG/3 ML INHALATION PRN ×2 (10:12→23:15)
[2016-08-09 12:13] LABS: Glucose,Whole Blood 120 mg/dL (75-99)
[2016-08-09] MEDS: HYDROcodone/APAP 10-325MG 1 EACH TAB PO PRN (12:21)
[2016-08-09] MEDS: ALPRAZolam 0.5 MG TAB PO PRN (12:24)
--- NOTE | 2016-08-09 12:56 | P.PN ---
Subjective This is a 76-year-old male one of Dr. 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 Boo currently on oxygen, hypertension and hypertensive cardio vascular disease, laryngeal cancer, status post radiation therapy, hypothyroidism, outpatient was in his usual state of health about a week ago when he developed to have an increased shortness breath associated with increased cough minimal phlegm production patient stated that he has been on a steroid pack for quite sometime did not do much for him patient ended up coming to the ER today because he could not breathe despite the fact he has been using his nebulized treatment [id number] and oxygen without any help patient had a chest x-ray that was negative, but for right pulmonary nodule, patient also was found to have a minimal leukocytosis, with minimal left shift, he had a low-grade temperature in the ER, patient was admitted to the hospital for acute respiratory failure due to COPD exacerbation. 08/04: still very short of breath will start Decadron 4 mg IVP q 8 h and will add Pulmicort 1 mg neb bid along with Performist bid,pulmonary to see the patient. 08/05: Lungs are present at the same from yesterday. He will continue on Decadron at the same dose. IV fluids will be changed to saline lock and patient will be given 1 dose of IV Lasix. He has continued on DuoNeb treatments and Pulmicort, Levaquin and theophylline. 08/06: Respiratory status is improving slowly. He states he had a rough night but feeling much improved this morning. Decadron will be decreased to 4 mg IV every 12 hours. Patient denies any chest pain. He is very anxious to be discharged, possibly by tomorrow. 08/07: Patient had episode of severe shortness of breath possibly after Pulmicort nebulizer treatment. His pulse ox dropped down to 82% and he was placed on nonrebreather with pulse ox up to 97%. He is now on nasal cannula. He has increased shortness of breath and tightness. Depo-Medrol currently at 4 mg every 12 hours will be changed every 8 hours. Lasix 1 to be given. Repeat chest x-ray shows chronic changes without acute pulmonary disease. 08/08: Patient had another episode of acute respiratory failure yesterday that he was transferred to the selective care unit. He was given an additional dose of Lasix yesterday afternoon. Decadron was increased to 6 mg IV every 6 hours. He has had good urine output. He was not able to tolerate BiPAP. Patient started on nystatin for thrush. 08/09: Patient's breathing status is improved today as well as thrush. He has not had a bowel movement. Depo-Medrol will be decreased to 6 mg every 8 hours. We have ordered an inhaler to keep at the bedside. Patient will be transferred back to [facility] today. Objective - Vital Signs Vital signs: Vital Signs Temp 97.3 F L 08/09/16 04:00 Pulse 88 08/09/16 07:48 Resp 20 08/09/16 04:00 BP 136/76 08/09/16 04:00 Pulse Ox 93 L 08/09/16 04:00 Intake & Output 08/08/16 08/09/16 08/09/16 18:59 06:59 18:59 Intake Total 100 260 Output Total 500 625 Balance -400 -365 Weight 70.2 kg Intake: IV 20 0.9 flush 20 Oral 100 240 Output: Urine 500 625 Other: Voiding Method Urinal Urinal # Voids 1 - Exam General appearance: severe distress - EENT Eyes: EOMI, PERRLA, no ptosis, no scleral icterus, normal appearance ENT: NA/AT, normal oropharynx, no thrush, no tonsillar exudates Ears: bilateral: normal - Neck Neck: no lymphadenopathy, no normal ROM, no rigidity, no stridor, no thyromegaly Carotids: bilateral: upstroke delayed Thyroid: bilateral: normal size - Respiratory Respiratory: bilateral: diminished, rhonchi, wheezing, prolonged expiration, negative: dullness, rales - Cardiovascular Rhythm: regular Heart sounds: normal: S1, S2 Abnormal Heart Sounds: systolic murmur, no S3 Gallop, no S4 Gallop, no click - Gastrointestinal General gastrointestinal: normal bowel sounds, soft, no splenomegaly, no tenderness, no umbilical hernia, no ventral hernia - Integumentary Integumentary: normal, normal turgor - Neurologic Neurologic: CNII-XII intact - Musculoskeletal Musculoskeletal: generalized weakness - Psychiatric Psychiatric: A&O x's 3, appropriate affect, intact judgment & insight - Labs CBC & Chem 7: 08/08/16 05:23 08/08/16 05:23 Labs: Abnormal Lab Results - Last 24 Hours (Table) 08/08/16 08/08/16 08/08/16 Range/Units 11:56 16:43 21:16 POC Glucose (mg/dL) 126 H 156 H 151 H (75-99) mg/dL 08/09/16 Range/Units 06:25 POC Glucose (mg/dL) 143 H (75-99) mg/dL Assessment and Plan Plan: 1. Acute hypoxic respiratory failure secondary to acute exacerbation of the severe COPD with acute bronchitis. Decadron 6mg IV push every 8 hours, continue patient on DuoNeb 3 mg nebulization 4 times every day, continue patient on Pulmicort 1 mg nebulization twice every day, continue oxygen support, continue Levaquin 500 mg PO every 24 hours, Mucinex 1200 mg orally twice every day, pulmonary consultation from Dr. Boo. 2. 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 Patient will need to be evaluated by cardiology as an outpatient. We' ll continue to monitor his cardiac enzymes every 8 hours for the next 24 hours. 3. Hypertension and hypertensive cardiovascular disease. Continue amlodipine 10 mg orally once every day. 4. Hyperlipidemia. Continue simvastatin 5 mg at bedtime. 5. Thyroidism. Continue Synthroid 50 g orally once every day. 6. Chronic tobacco use and dependence. Abstinence from smoking. 7. Laryngeal cancer status post rotation therapy. Stable. 8. Chronic low back pain. Continue Robaxin. 9. Steroid-induced hyperglycemia. We'll start the patient on the sliding scale insulin. 10. DVT prophylaxis. Heparin 5000 units subcutaneously every 12 hours, bilateral knee-high POORNIMA hose. 11. GI prophylaxis. Protonix 40 mg orally once every day. 12. Fluid overload due to IV steroids. Patient started on Lasix 20 mg IV daily. 13. Thrush. Continue nystatin. Discharge plan: Home Impression and plan of care have been directed as dictated by the signing physician. Joana Mcknight nurse practitioner acting as scribe for signing physician. Time with Patient: Greater than 30
--- NOTE | 2016-08-09 16:30 | P.PN ---
Subjective This is a very pleasant 76-year-old gentleman who follows with Dr. 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 He also has a history of hypertension hypothyroidism gastroesophageal reflux disease and hyperlipidemia. He does have a history of laryngeal cancer status post radiation. He had presented here on 08/03/2016 with complaints of increasing shortness of breath cough and congestion. His chest x-ray revealed no acute pulmonary process. He is seen again today in follow-up on the regular medical floor. He is awake and alert in no acute distress. He is breathing better today as compared to yesterday but not quite back to his baseline. He is still somewhat bronchospastic and wheezy. He is requiring 4 L/m per nasal cannula to maintain O2 saturations in the mid 90s. On the patient is being seen in follow-up. The patient is feeling slightly better. Less short of breath compared to yesterday. He is cough and congestion is improved. No chest pain. No pleurisy. No change in mental status. No other complaints otherwise. The patient on Decadron as the patient is unable to tolerate any other form of steroids. Note that he is also on empiric antibiotic coverage with Levaquin 500 mg by mouth daily. On , the patient is being seen in follow-up. He was doing relatively well earlier this morning however he progressively got worse and this afternoon the patient was having more difficulty breathing and he was sitting at edge of the bed, coughing, congested, having extremity wheezes and this can be heard throughout the lung puentes bilaterally. At one point he was having also difficulties in completing full sentences. He was taking Pulmicort and he states that he could have been potentially having an ALLERGIC reaction or an adverse reaction to Pulmicort. Nevertheless the patient has been maintained on a combination of Symbicort and Spiriva on outpatient basis and he has been able to tolerate his medications without any major difficulties. He is unable to take of his Sinemet on for that reason he is on Decadron. His chest x-ray showed COPD with increased interstitial markings. The patient was given 40 mg IV Lasix and he has diuresed more than 300 mL of urine output. At this point in time, it's reasonable to move this patient to selective unit for further monitoring. He may need BiPAP for respiratory support. He is on Levaquin as a broad-spectrum antibiotic coverage regarding his COPD exacerbation. The patient was seen again today 08/08/2016 in follow-up on the selective care unit. He is awake and alert in no acute distress. He was struggling a bit yesterday but is improved somewhat today. He is still dyspneic on minimal exertion. He was not able to tolerate the BiPAP last evening. He is currently maintaining O2 saturations in the 90s on room air. He is still bronchospastic and wheezy. 08/09/2016, patient is being seen in follow-up. The patient is still having on and off exacerbation of his COPD. At times he feels quite comfortably at other times he gets short of breath and worked up and reports labored breathing. We are treating this patient with Decadron as the patient is unable to tolerate solid Medrol. He is known to have ALLERGIES to Solu-Medrol. He is also on a combination of Spiriva and Symbicort and DuoNeb the right seems around-the- clock. He was unable to tolerate the BiPAP. He is resting comfortably in bed. He is on oxygen 2-3 L/m nasal cannula. I would say Zorro bronchospasm and wheezing is improved compared to yesterday. Is tolerating his diet. His most recent chest x-ray is not showing any acute abnormality 7 chronic COPD. Objective - Vital Signs Vital signs: Vital Signs Temp 97.1 F L 08/09/16 12:00 Pulse 101 H 08/09/16 12:00 Resp 22 08/09/16 12:00 BP 141/71 08/09/16 12:00 Pulse Ox 91 L 08/09/16 12:00 Intake & Output 08/08/16 08/09/16 08/09/16 18:59 06:59 18:59 Intake Total 100 260 600 Output Total 500 625 200 Balance -400 -365 400 Weight 70.2 kg Intake: IV 20 0.9 flush 20 Oral 100 240 600 Output: Urine 500 625 200 Other: Voiding Method Urinal Urinal Urinal # Voids 1 - Exam The patient appeared well nourished and normally developed. the patient is more short of breath compared to yesterday and his having difficulties in breathing even at rest.Vital signs as documented. Head exam is unremarkable. No scleral icterus or corneal arcus noted. Neck is without jugular venous distension, thyromegaly, or carotid bruits. Carotid upstrokes are brisk bilaterally. Lung examination shows diminished breath sounds bilaterally along with prolongation of expiratory phase of breathing and scattered external wheezes. Cardiac exam reveals the PMI to be normally sized and situated. Rhythm is regular. First and second heart sounds normal. No murmurs, rubs or gallops. Abdominal exam reveals normal bowel sounds, no masses, no organomegaly and no aortic enlargement. Extremities are nonedematous and both femoral and pedal pulses are normal. - Labs CBC & Chem 7: 08/08/16 05:23 08/08/16 05:23 Labs: Abnormal Lab Results - Last 24 Hours (Table) 08/08/16 08/08/16 08/09/16 Range/Units 16:43 21:16 06:25 POC Glucose (mg/dL) 156 H 151 H 143 H (75-99) mg/dL 08/09/16 Range/Units 12:02 POC Glucose (mg/dL) 120 H (75-99) mg/dL Assessment and Plan Plan: Impression: #1 Acute exacerbation of chronic obstructive pulmonary disease. On 08/09/2016, I think there has been some progress and the patient's COPD exacerbation as the patient is less short of breath. On and off is having still episodes where he gets above and beyond his baseline. As such she'll be monitored here on telemetry selective unit and will continue the same treatment for now. #2 Chronic and ongoing tobacco dependence. #3 Daily alcohol use. #4 History of laryngeal cancer status post radiation. #5 Hyperlipidemia. #6 Hyper tension. #7 Hypothyroidism. Plan Radha same treatment. No need for any adjustments on the current therapy. Continue high-dose Decadron. Continue the Symbicort and Spiriva combination regarding COPD along with albuterol HFA at the bedside and return about treatments around the clock. Anticipate further improvement. We'll continue to follow.
[2016-08-09 16:43] LABS: Glucose,Whole Blood 153 mg/dL (75-99)
[2016-08-09] MEDS: LEVOFLOXACIN 500 MG TAB PO SCH (16:49)
[2016-08-09] MEDS: TERAZOSIN 5 MG CAP PO SCH (20:46)
[2016-08-09 21:15] LABS: Glucose,Whole Blood 143 mg/dL (75-99)
[2016-08-10] MEDS: IPRATROPIUM-ALBUTEROL 3 ML NEB INHALATION SCH ×6 (05:32→20:41)
[2016-08-10 06:12] LABS: Glucose,Whole Blood 132 mg/dL (75-99)
[2016-08-10] MEDS: LEVOTHYROXINE 50 MCG TAB PO SCH (06:54)
[2016-08-10] MEDS: INSULIN LISPRO (humaLOG) 300 UNIT/3 ML VIAL SQ SCH ×3 (06:55→17:46)
[2016-08-10] MEDS: SYMBICORT 160-4.5 MCG INHALER INHALATION SCH ×2 (07:40→19:09)
[2016-08-10] MEDS: TIOTROPIUM 18 MCG/PUFF INHALER INHALATION SCH (07:40)
[2016-08-10] MEDS: THEOPHYLLINE 100 MG PO SCH (09:25)
[2016-08-10] MEDS: amLODIPine 10 MG TAB PO SCH (09:26)
[2016-08-10] MEDS: MONTELUKAST 10 MG TAB PO SCH (09:26)
[2016-08-10] MEDS: NICOTINE 21MG/24HR PATCH TRANSDERM SCH (09:26)
[2016-08-10] MEDS: ATORVASTATIN 10 MG TAB PO SCH (09:27)
[2016-08-10] MEDS: ENOXAPARIN 40 MG/0.4 ML SYRINGE SQ SCH (09:27)
[2016-08-10] MEDS: MAGNESIUM OXIDE 400 MG TAB PO SCH (09:27)
[2016-08-10] MEDS: FUROSEMIDE 10 MG/ML 2 ML VIAL IV SCH (09:28)
[2016-08-10] MEDS: PANTOPRAZOLE 40 MG/10 ML VIAL IVP SCH ×2 (09:28→20:29)
[2016-08-10] MEDS: NYSTATIN 100,000 UNIT/ML SUSP 500,000 UNIT/5 ML CUP PO SCH ×4 (09:28→20:29)
[2016-08-10] MEDS: DEXAMETHASONE SOD PHOSPHATE 10 MG/ML 1 ML VIAL IV SCH ×3 (09:29→23:55)
[2016-08-10] MEDS: ALBUTEROL NEBULIZED 2.5 MG/3 ML INHALATION PRN ×3 (09:59→19:07)
[2016-08-10] MEDS: ALPRAZolam 0.5 MG TAB PO PRN ×2 (10:11→21:35)
[2016-08-10 11:08] VITALS: BMI 26.7
[2016-08-10 11:47] LABS: Glucose,Whole Blood 126 mg/dL (75-99)
--- NOTE | 2016-08-10 12:40 | P.PN ---
Subjective This is a very pleasant 76-year-old gentleman who follows with Dr. 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 He also has a history of hypertension hypothyroidism gastroesophageal reflux disease and hyperlipidemia. He does have a history of laryngeal cancer status post radiation. He had presented here on 08/03/2016 with complaints of increasing shortness of breath cough and congestion. His chest x-ray revealed no acute pulmonary process. He is seen again today in follow-up on the regular medical floor. He is awake and alert in no acute distress. He is breathing better today as compared to yesterday but not quite back to his baseline. He is still somewhat bronchospastic and wheezy. He is requiring 4 L/m per nasal cannula to maintain O2 saturations in the mid 90s. On the patient is being seen in follow-up. The patient is feeling slightly better. Less short of breath compared to yesterday. He is cough and congestion is improved. No chest pain. No pleurisy. No change in mental status. No other complaints otherwise. The patient on Decadron as the patient is unable to tolerate any other form of steroids. Note that he is also on empiric antibiotic coverage with Levaquin 500 mg by mouth daily. On , the patient is being seen in follow-up. He was doing relatively well earlier this morning however he progressively got worse and this afternoon the patient was having more difficulty breathing and he was sitting at edge of the bed, coughing, congested, having extremity wheezes and this can be heard throughout the lung puentes bilaterally. At one point he was having also difficulties in completing full sentences. He was taking Pulmicort and he states that he could have been potentially having an ALLERGIC reaction or an adverse reaction to Pulmicort. Nevertheless the patient has been maintained on a combination of Symbicort and Spiriva on outpatient basis and he has been able to tolerate his medications without any major difficulties. He is unable to take of his Sinemet on for that reason he is on Decadron. His chest x-ray showed COPD with increased interstitial markings. The patient was given 40 mg IV Lasix and he has diuresed more than 300 mL of urine output. At this point in time, it's reasonable to move this patient to selective unit for further monitoring. He may need BiPAP for respiratory support. He is on Levaquin as a broad-spectrum antibiotic coverage regarding his COPD exacerbation. The patient was seen again today 08/08/2016 in follow-up on the selective care unit. He is awake and alert in no acute distress. He was struggling a bit yesterday but is improved somewhat today. He is still dyspneic on minimal exertion. He was not able to tolerate the BiPAP last evening. He is currently maintaining O2 saturations in the 90s on room air. He is still bronchospastic and wheezy. 08/09/2016, patient is being seen in follow-up. The patient is still having on and off exacerbation of his COPD. At times he feels quite comfortably at other times he gets short of breath and worked up and reports labored breathing. We are treating this patient with Decadron as the patient is unable to tolerate solid Medrol. He is known to have ALLERGIES to Solu-Medrol. He is also on a combination of Spiriva and Symbicort and DuoNeb the right seems around-the- clock. He was unable to tolerate the BiPAP. He is resting comfortably in bed. He is on oxygen 2-3 L/m nasal cannula. I would say Zorro bronchospasm and wheezing is improved compared to yesterday. Is tolerating his diet. His most recent chest x-ray is not showing any acute abnormality 7 chronic COPD. On 08/10/2016, right is feeling better. He is less short of breath. Not using BiPAP. Same on the same medication regimen which includes a high dose Decadron in addition to Symbicort and Spiriva and theophylline his maintenance medications. Decadron 6 mg IV every 8 hours. No fever. No chills. No signs of any CO2 narcosis. Oxygen level is at 2-3 L/m nasal cannula. Objective - Vital Signs Vital signs: Vital Signs Temp 98.3 F 08/10/16 08:45 Pulse 92 08/10/16 12:00 Resp 18 08/10/16 08:45 BP 161/69 08/10/16 08:45 Pulse Ox 98 08/10/16 08:45 Intake & Output 08/09/16 08/10/16 08/10/16 18:59 06:59 18:59 Intake Total 840 130 240 Output Total 200 400 550 Balance 640 270 310 Weight 70.7 kg 70.7 kg Intake: IV 10 0.9 flush 10 Oral 840 120 240 Output: Urine 200 400 550 Other: Voiding Method Urinal Urinal # Voids 1 1 # Bowel Movements 0 - Exam The patient appeared well nourished and normally developed. the patient is more short of breath compared to yesterday and his having difficulties in breathing even at rest.Vital signs as documented. Head exam is unremarkable. No scleral icterus or corneal arcus noted. Neck is without jugular venous distension, thyromegaly, or carotid bruits. Carotid upstrokes are brisk bilaterally. Lung examination shows diminished breath sounds bilaterally along with prolongation of expiratory phase of breathing and scattered external wheezes. Cardiac exam reveals the PMI to be normally sized and situated. Rhythm is regular. First and second heart sounds normal. No murmurs, rubs or gallops. Abdominal exam reveals normal bowel sounds, no masses, no organomegaly and no aortic enlargement. Extremities are nonedematous and both femoral and pedal pulses are normal. - Labs CBC & Chem 7: 08/08/16 05:23 08/08/16 05:23 Labs: Abnormal Lab Results - Last 24 Hours (Table) 08/09/16 08/09/16 08/10/16 Range/Units 16:36 21:13 06:11 POC Glucose (mg/dL) 153 H 143 H 132 H (75-99) mg/dL 08/10/16 Range/Units 11:41 POC Glucose (mg/dL) 126 H (75-99) mg/dL Assessment and Plan Plan: Impression: #1 Acute exacerbation of chronic obstructive pulmonary disease, improving #2 Chronic and ongoing tobacco dependence. #3 Daily alcohol use. #4 History of laryngeal cancer status post radiation. #5 Hyperlipidemia. #6 Hyper tension. #7 Hypothyroidism. Plan Same treatment. Taper Decadron as of tomorrow. Discharge planning is in progress.
--- NOTE | 2016-08-10 15:19 | P.PN ---
Subjective This is a 76-year-old male one of Dr. 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 Boo currently on oxygen, hypertension and hypertensive cardio vascular disease, laryngeal cancer, status post radiation therapy, hypothyroidism, outpatient was in his usual state of health about a week ago when he developed to have an increased shortness breath associated with increased cough minimal phlegm production patient stated that he has been on a steroid pack for quite sometime did not do much for him patient ended up coming to the ER today because he could not breathe despite the fact he has been using his nebulized treatment [id number] and oxygen without any help patient had a chest x-ray that was negative, but for right pulmonary nodule, patient also was found to have a minimal leukocytosis, with minimal left shift, he had a low-grade temperature in the ER, patient was admitted to the hospital for acute respiratory failure due to COPD exacerbation. 08/04: still very short of breath will start Decadron 4 mg IVP q 8 h and will add Pulmicort 1 mg neb bid along with Performist bid,pulmonary to see the patient. 08/05: Lungs are present at the same from yesterday. He will continue on Decadron at the same dose. IV fluids will be changed to saline lock and patient will be given 1 dose of IV Lasix. He has continued on DuoNeb treatments and Pulmicort, Levaquin and theophylline. 08/06: Respiratory status is improving slowly. He states he had a rough night but feeling much improved this morning. Decadron will be decreased to 4 mg IV every 12 hours. Patient denies any chest pain. He is very anxious to be discharged, possibly by tomorrow. 08/07: Patient had episode of severe shortness of breath possibly after Pulmicort nebulizer treatment. His pulse ox dropped down to 82% and he was placed on nonrebreather with pulse ox up to 97%. He is now on nasal cannula. He has increased shortness of breath and tightness. Depo-Medrol currently at 4 mg every 12 hours will be changed every 8 hours. Lasix 1 to be given. Repeat chest x-ray shows chronic changes without acute pulmonary disease. 08/08: Patient had another episode of acute respiratory failure yesterday that he was transferred to the selective care unit. He was given an additional dose of Lasix yesterday afternoon. Decadron was increased to 6 mg IV every 6 hours. He has had good urine output. He was not able to tolerate BiPAP. Patient started on nystatin for thrush. 08/09: Patient's breathing status is improved today as well as thrush. He has not had a bowel movement. Depo-Medrol will be decreased to 6 mg every 8 hours. We have ordered an inhaler to keep at the bedside. Patient will be transferred back to [facility] today. 08/10: Patient continues to improve, has slow turnaround time for his pulmonary status currently on dexamethasone 6 mg every 8 hours which was tapered down oral Levaquin no sputum cultures blood cultures negative Objective - Vital Signs Vital signs: Vital Signs Temp 97.3 F L 08/10/16 12:20 Pulse 96 08/10/16 14:39 Resp 18 08/10/16 12:20 BP 152/65 08/10/16 12:20 Pulse Ox 94 L 08/10/16 12:20 Intake & Output 08/09/16 08/10/16 08/10/16 18:59 06:59 18:59 Intake Total 840 130 240 Output Total 200 400 550 Balance 640 -270 -310 Weight 70.7 kg 70.7 kg Intake: IV 10 0.9 flush 10 Oral 840 120 240 Output: Urine 200 400 550 Other: Voiding Method Urinal Urinal # Voids 1 1 # Bowel Movements 0 - Constitutional General appearance: Present: cooperative, no acute distress - EENT Eyes: Present: anicteric sclerae, PERRLA, dentition normal, normal appearance ENT: Present: hearing grossly normal, NA/AT, normal oropharynx - Neck Neck: Present: normal ROM - Respiratory Respiratory: bilateral: CTA, diminished, negative: dullness, rales, rhonchi - Cardiovascular Rhythm: regular Heart sounds: normal: S1, S2 Abnormal Heart Sounds: Absent: systolic murmur, diastolic murmur, rub, S3 Gallop , S4 Gallop, click, other - Gastrointestinal General gastrointestinal: Present: soft - Integumentary Integumentary: Present: normal, normal turgor - Neurologic Neurologic: Present: CNII-XII intact - Musculoskeletal Musculoskeletal: Present: gait normal, strength equal bilaterally - Psychiatric Psychiatric: Present: A&O x's 3, appropriate affect, intact judgment & insight - Labs CBC & Chem 7: 08/08/16 05:23 08/08/16 05:23 Labs: Abnormal Lab Results - Last 24 Hours (Table) 08/09/16 08/09/16 08/10/16 Range/Units 16:36 21:13 06:11 POC Glucose (mg/dL) 153 H 143 H 132 H (75-99) mg/dL 08/10/16 Range/Units 11:41 POC Glucose (mg/dL) 126 H (75-99) mg/dL Assessment and Plan Plan: 1. Acute hypoxic respiratory failure secondary to acute exacerbation of the severe COPD with acute bronchitis. Decadron 6mg IV push every 8 hours, continue patient on DuoNeb 3 mg nebulization 4 times every day, continue patient on theophylline, Symbicort, Spiriva. Patient did not tolerate Pulmicort and was discontinued. continue oxygen support, continue Levaquin 500 mg PO every 24 hours, Mucinex 1200 mg orally twice every day, pulmonary consultation from Dr. Boo. 2. 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 Patient will need to be evaluated by cardiology as an outpatient. 3. Hypertension and hypertensive cardiovascular disease. Continue amlodipine 10 mg orally once every day. 4. Hyperlipidemia. Continue simvastatin 5 mg at bedtime. 5. Thyroidism. Continue Synthroid 50 g orally once every day. 6. Chronic tobacco use and dependence. Abstinence from smoking. 7. Laryngeal cancer status post rotation therapy. Stable. 8. Chronic low back pain. Continue Robaxin. 9. Steroid-induced hyperglycemia. We'll start the patient on the sliding scale insulin. 10. DVT prophylaxis. Heparin 5000 units subcutaneously every 12 hours, bilateral knee-high POORNIMA hose. 11. GI prophylaxis. Protonix 40 mg orally once every day. 12. Fluid overload due to IV steroids. Patient started on Lasix 20 mg IV daily. 13. Thrush. Continue nystatin. Discharge plan: Home
[2016-08-10] MEDS: LEVOFLOXACIN 500 MG TAB PO SCH (16:04)
[2016-08-10 17:17] LABS: Glucose,Whole Blood 174 mg/dL (75-99)
[2016-08-10] MEDS: TERAZOSIN 5 MG CAP PO SCH (20:28)
[2016-08-10 21:17] LABS: Glucose,Whole Blood 140 mg/dL (75-99)
[2016-08-11] MEDS: ALBUTEROL NEBULIZED 2.5 MG/3 ML INHALATION PRN ×3 (02:21→13:24)
[2016-08-11] MEDS: LEVOTHYROXINE 50 MCG TAB PO SCH (06:42)
[2016-08-11] MEDS: TIOTROPIUM 18 MCG/PUFF INHALER INHALATION SCH (07:24)
[2016-08-11] MEDS: IPRATROPIUM-ALBUTEROL 3 ML NEB INHALATION SCH ×4 (07:25→15:47)
[2016-08-11] MEDS: SYMBICORT 160-4.5 MCG INHALER INHALATION SCH (07:26)
[2016-08-11 07:42] LABS: Glucose,Whole Blood 128 mg/dL (75-99)
[2016-08-11 07:59] VITALS: RESP 22
[2016-08-11] MEDS: INSULIN LISPRO (humaLOG) 300 UNIT/3 ML VIAL SQ SCH ×2 (08:04→13:07)
[2016-08-11] MEDS: DEXAMETHASONE SOD PHOSPHATE 10 MG/ML 1 ML VIAL IV SCH ×2 (08:06→15:58)
[2016-08-11] MEDS: NYSTATIN 100,000 UNIT/ML SUSP 500,000 UNIT/5 ML CUP PO SCH ×2 (08:07→13:06)
[2016-08-11] MEDS: ENOXAPARIN 40 MG/0.4 ML SYRINGE SQ SCH (08:07)
[2016-08-11] MEDS: NICOTINE 21MG/24HR PATCH TRANSDERM SCH (08:07)
[2016-08-11] MEDS: MAGNESIUM OXIDE 400 MG TAB PO SCH (08:07)
[2016-08-11] MEDS: PANTOPRAZOLE 40 MG/10 ML VIAL IVP SCH (08:07)
[2016-08-11] MEDS: amLODIPine 10 MG TAB PO SCH (08:07)
[2016-08-11] MEDS: ATORVASTATIN 10 MG TAB PO SCH (08:07)
[2016-08-11] MEDS: MONTELUKAST 10 MG TAB PO SCH (08:07)
[2016-08-11] MEDS: FUROSEMIDE 10 MG/ML 2 ML VIAL IV SCH (08:07)
[2016-08-11] MEDS: THEOPHYLLINE 100 MG PO SCH (08:08)
[2016-08-11 11:34] LABS: Basophils # (A) 0.1 k/uL (0-0.2); Basophils % (A) 1 %; CH 32.3; Eosinophils % (A) 0 %; HCT 44.8 % (39.0-53.0); HDW 2.47; HGB 14.8 gm/dL (13.0-17.5); Luc # (Auto) 0.16; Luc % (Auto) 1; Lymphocytes # (A) 0.4 k/uL (1.0-4.8); Lymphocytes % (A) 3 %; MCH 32.5 pg (25.0-35.0); MCV 98.2 fL (80.0-100.0); Mean Platelet Volume 7.4; Monocytes % (A) 6 %; Neutrophils # (A) 14.6 k/uL (1.3-7.7); Neutrophils % (A) 90 %; RBC 4.56 m/uL (4.30-5.90); WBC 16.3 k/uL (3.8-10.6); WBC (Perox) 16.85
[2016-08-11 11:52] LABS: Blood Urea Nitrogen 40 mg/dL (9-20); Calcium 9.7 mg/dL (8.4-10.2); Chloride 93 mmol/L (98-107); Glucose 115 mg/dL (74-99); Non-African American GFR(MDRD) >60 (>60 ml/min/1.73 sqM); Potassium 4.4 mmol/L (3.5-5.1); Sodium 140 mmol/L (137-145)
[2016-08-11 11:58] LABS: Anion Gap 5 mmol/L
[2016-08-11 12:14] LABS: Carbon Dioxide 42 mmol/L (22-30)
[2016-08-11 12:33] LABS: Glucose,Whole Blood 123 mg/dL (75-99)
--- NOTE | 2016-08-11 13:54 | P.PN ---
Subjective This is a very pleasant 76-year-old gentleman who follows with Dr. 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 He also has a history of hypertension hypothyroidism gastroesophageal reflux disease and hyperlipidemia. He does have a history of laryngeal cancer status post radiation. He had presented here on 08/03/2016 with complaints of increasing shortness of breath cough and congestion. His chest x-ray revealed no acute pulmonary process. He is seen again today in follow-up on the regular medical floor. He is awake and alert in no acute distress. He is breathing better today as compared to yesterday but not quite back to his baseline. He is still somewhat bronchospastic and wheezy. He is requiring 4 L/m per nasal cannula to maintain O2 saturations in the mid 90s. On the patient is being seen in follow-up. The patient is feeling slightly better. Less short of breath compared to yesterday. He is cough and congestion is improved. No chest pain. No pleurisy. No change in mental status. No other complaints otherwise. The patient on Decadron as the patient is unable to tolerate any other form of steroids. Note that he is also on empiric antibiotic coverage with Levaquin 500 mg by mouth daily. On , the patient is being seen in follow-up. He was doing relatively well earlier this morning however he progressively got worse and this afternoon the patient was having more difficulty breathing and he was sitting at edge of the bed, coughing, congested, having extremity wheezes and this can be heard throughout the lung puentes bilaterally. At one point he was having also difficulties in completing full sentences. He was taking Pulmicort and he states that he could have been potentially having an ALLERGIC reaction or an adverse reaction to Pulmicort. Nevertheless the patient has been maintained on a combination of Symbicort and Spiriva on outpatient basis and he has been able to tolerate his medications without any major difficulties. He is unable to take of his Sinemet on for that reason he is on Decadron. His chest x-ray showed COPD with increased interstitial markings. The patient was given 40 mg IV Lasix and he has diuresed more than 300 mL of urine output. At this point in time, it's reasonable to move this patient to selective unit for further monitoring. He may need BiPAP for respiratory support. He is on Levaquin as a broad-spectrum antibiotic coverage regarding his COPD exacerbation. The patient was seen again today 08/08/2016 in follow-up on the selective care unit. He is awake and alert in no acute distress. He was struggling a bit yesterday but is improved somewhat today. He is still dyspneic on minimal exertion. He was not able to tolerate the BiPAP last evening. He is currently maintaining O2 saturations in the 90s on room air. He is still bronchospastic and wheezy. 08/09/2016, patient is being seen in follow-up. The patient is still having on and off exacerbation of his COPD. At times he feels quite comfortably at other times he gets short of breath and worked up and reports labored breathing. We are treating this patient with Decadron as the patient is unable to tolerate solid Medrol. He is known to have ALLERGIES to Solu-Medrol. He is also on a combination of Spiriva and Symbicort and DuoNeb the right seems around-the- clock. He was unable to tolerate the BiPAP. He is resting comfortably in bed. He is on oxygen 2-3 L/m nasal cannula. I would say Zorro bronchospasm and wheezing is improved compared to yesterday. Is tolerating his diet. His most recent chest x-ray is not showing any acute abnormality 7 chronic COPD. On 08/10/2016, right is feeling better. He is less short of breath. Not using BiPAP. Same on the same medication regimen which includes a high dose Decadron in addition to Symbicort and Spiriva and theophylline his maintenance medications. Decadron 6 mg IV every 8 hours. No fever. No chills. No signs of any CO2 narcosis. Oxygen level is at 2-3 L/m nasal cannula. On 08/11/2016, the patient is stable. He feels that his condition is improved. He is on Decadron IV. He is on Symbicort and Spiriva and theophylline. No thrush. No chest pain. No sputum production. No use of accessory muscles of breathing. Objective - Vital Signs Vital signs: Vital Signs Temp 97.9 F 08/11/16 07:00 Pulse 118 H 08/11/16 13:35 Resp 22 08/11/16 07:00 BP 155/90 08/11/16 07:00 Pulse Ox 91 L 08/11/16 07:27 Intake & Output 08/10/16 08/11/16 08/11/16 18:59 06:59 18:59 Intake Total 240 100 Output Total 550 900 Balance -310 -800 Weight 70.7 kg 67.5 kg Intake: Oral 240 100 Output: Urine 550 900 Other: # Voids 1 2 # Bowel Movements 0 - Exam The patient appeared well nourished and normally developed. the patient is more short of breath compared to yesterday and his having difficulties in breathing even at rest.Vital signs as documented. Head exam is unremarkable. No scleral icterus or corneal arcus noted. Neck is without jugular venous distension, thyromegaly, or carotid bruits. Carotid upstrokes are brisk bilaterally. Lung examination shows diminished breath sounds bilaterally along with prolongation of expiratory phase of breathing and scattered external wheezes. Cardiac exam reveals the PMI to be normally sized and situated. Rhythm is regular. First and second heart sounds normal. No murmurs, rubs or gallops. Abdominal exam reveals normal bowel sounds, no masses, no organomegaly and no aortic enlargement. Extremities are nonedematous and both femoral and pedal pulses are normal. - Labs CBC & Chem 7: 08/11/16 11:13 08/11/16 11:13 Labs: Abnormal Lab Results - Last 24 Hours (Table) 08/10/16 08/10/16 08/11/16 Range/Units 17:05 20:59 07:16 WBC (3.8-10.6) k/uL Neutrophils # (1.3-7.7) k/uL Lymphocytes # (1.0-4.8) k/uL Chloride (98-107) mmol/L Carbon Dioxide (22-30) mmol/L BUN (9-20) mg/dL Glucose (74-99) mg/dL POC Glucose (mg/dL) 174 H 140 H 128 H (75-99) mg/dL 08/11/16 08/11/16 08/11/16 Range/Units 11:13 11:13 12:24 WBC 16.3 H (3.8-10.6) k/uL Neutrophils # 14.6 H (1.3-7.7) k/uL Lymphocytes # 0.4 L (1.0-4.8) k/uL Chloride 93 L (98-107) mmol/L Carbon Dioxide 42 H* (22-30) mmol/L BUN 40 H (9-20) mg/dL Glucose 115 H (74-99) mg/dL POC Glucose (mg/dL) 123 H (75-99) mg/dL Assessment and Plan Plan: Impression: #1 Acute exacerbation of chronic obstructive pulmonary disease, improving #2 Chronic and ongoing tobacco dependence. #3 Daily alcohol use. #4 History of laryngeal cancer status post radiation. #5 Hyperlipidemia. #6 Hyper tension. #7 Hypothyroidism. Plan Patient is stable. He thinks that he is getting closer to his baseline. From the pulmonary standpoint, I'm going to clear this patient for discharge either today or tomorrow on a Decadron taper starting with 4 mg 3 times a day for 5 days, 2 mg 3 times a day for 5 days and 1 mg 3 times a day for 5 days he had he is also on a combination of Spiriva and Symbicort as maintenance in addition to theophylline. Will be seen in the office.
[2016-08-11 14:50] VITALS: BP 138/64; TEMP 97.6
[2016-08-11] MEDS: LEVOFLOXACIN 500 MG TAB PO SCH (15:58)
[2016-08-11 16:02] VITALS: PULSE 110
--- NOTE | 2016-08-16 15:36 | P.DS ---
Providers Date of admission: 08/03/16 15:41 Expected date of discharge: 08/11/16 Attending physician: Marietta Haley Primary care physician: Moy Pina [facility] Course: This is a 76-year-old male one of Dr. Pina with a previous medical history significant for moderate to severe COPD under the care of Dr. Boo currently on oxygen, hypertension and hypertensive cardio vascular disease, laryngeal cancer, status post radiation therapy, hypothyroidism, outpatient was in his usual state of health about a week ago when he developed to have an increased shortness breath associated with increased cough minimal phlegm production patient stated that he has been on a steroid pack for quite sometime did not do much for him patient ended up coming to the ER today because he could not breathe despite the fact he has been using his nebulized treatment [id number] and oxygen without any help patient had a chest x-ray that was negative, but for right pulmonary nodule, patient also was found to have a minimal leukocytosis, with minimal left shift, he had a low-grade temperature in the ER, patient was admitted to the hospital for acute respiratory failure due to COPD exacerbation. 08/04: still very short of breath will start Decadron 4 mg IVP q 8 h and will add Pulmicort 1 mg neb bid along with Performist bid,pulmonary to see the patient. 08/05: Lungs are present at the same from yesterday. He will continue on Decadron at the same dose. IV fluids will be changed to saline lock and patient will be given 1 dose of IV Lasix. He has continued on DuoNeb treatments and Pulmicort, Levaquin and theophylline. 08/06: Respiratory status is improving slowly. He states he had a rough night but feeling much improved this morning. Decadron will be decreased to 4 mg IV every 12 hours. Patient denies any chest pain. He is very anxious to be discharged, possibly by tomorrow. 08/07: Patient had episode of severe shortness of breath possibly after Pulmicort nebulizer treatment. His pulse ox dropped down to 82% and he was placed on nonrebreather with pulse ox up to 97%. He is now on nasal cannula. He has increased shortness of breath and tightness. Depo-Medrol currently at 4 mg every 12 hours will be changed every 8 hours. Lasix 1 to be given. Repeat chest x-ray shows chronic changes without acute pulmonary disease. 08/08: Patient had another episode of acute respiratory failure yesterday that he was transferred to the selective care unit. He was given an additional dose of Lasix yesterday afternoon. Decadron was increased to 6 mg IV every 6 hours. He has had good urine output. He was not able to tolerate BiPAP. Patient started on nystatin for thrush. 08/09: Patient's breathing status is improved today as well as thrush. He has not had a bowel movement. Depo-Medrol will be decreased to 6 mg every 8 hours. We have ordered an inhaler to keep at the bedside. Patient will be transferred back to [facility] today. 08/10: Patient continues to improve, has slow turnaround time for his pulmonary status currently on dexamethasone 6 mg every 8 hours which was tapered down oral Levaquin no sputum cultures blood cultures negative Patient was discharged home in stable condition. Discharge diagnoses: 1. Acute hypoxic respiratory failure secondary to acute exacerbation of the severe COPD with acute bronchitis. 2. 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 Patient will need to be evaluated by cardiology as an outpatient. 3. Hypertension and hypertensive cardiovascular disease. 4. Hyperlipidemia. 5. Hypothyroidism. 6. Chronic tobacco use and dependence. 7. Laryngeal cancer status post rotation therapy. Stable. 8. Chronic low back pain. 9. Steroid-induced hyperglycemia. 10. Fluid overload due to IV steroids. Patient started on Lasix 20 mg IV daily. 11. Thrush. Discharge plan: Home Impression and plan of care have been directed as dictated by the signing physician. Joana Mcknight nurse practitioner acting as scribe for signing physician. Cc: Dr. Moy pina Patient Condition at Discharge: Stable Plan - Discharge Summary New Discharge Prescriptions: ALPRAZolam [Xanax] 0.25 mg PO TID #30 tab Dexamethasone [Hexadrol] 4 mg PO TID #20 tablet Furosemide [Lasix] 20 mg PO DAILY #30 tab Levofloxacin [Levaquin] 500 mg PO DAILY@1600 #7 tab Nicotine 21Mg/24Hr Patch [Habitrol] 1 patch TRANSDERM DAILY #14 patch Nystatin 100,000 Unit/ml Susp [Mycostatin Oral Susp] 500,000 unit PO QID #120 cup Tiotropium 18 Mcg/Puff [Spiriva] 1 puff INHALATION RT-DAILY #30 inhaler Discharge Medication List Levothyroxine Sodium [Synthroid] 50 mcg PO DAILY 01/11/14 [History] Simvastatin [Zocor] 5 mg PO DAILY 01/11/14 [History] Terazosin HCl [Hytrin] 10 mg PO HS 01/11/14 [History] amLODIPine BESYLATE [Norvasc] 10 mg PO DAILY 01/11/14 [History] Budesonide/Formoterol Fumarate [Symbicort 160-4.5 Mcg Inhaler] 2 puff INHALATION RT-BID 04/14/16 [History] HYDROcodone/APAP 10-325MG [[place] 10-325] 1 tab PO QID PRN 04/14/16 [History] Tiotropium 18 Mcg/Puff [Spiriva] 1 cap INHALATION RT-DAILY 04/14/16 [History] Dexamethasone 0.75 mg PO DAILY 08/03/16 [History] Ibuprofen [Motrin] 800 mg PO TID PRN 08/03/16 [History] Magnesium Oxide [Mag-Ox] 400 mg PO DAILY 08/03/16 [History] Methocarbamol [Robaxin] 750 mg PO QID PRN 08/03/16 [History] Montelukast [Singulair] 10 mg PO DAILY 08/03/16 [History] Omeprazole 40 mg PO DAILY 08/03/16 [History] Theophylline 12 Hour [Sanjeev-Dur] 100 mg PO DAILY 08/03/16 [History] ALPRAZolam [Xanax] 0.25 mg PO TID #30 tab 08/11/16 [Rx] Dexamethasone [Hexadrol] 4 mg PO TID #20 tablet 08/11/16 [Rx] Furosemide [Lasix] 20 mg PO DAILY #30 tab 08/11/16 [Rx] Ipratropium-Albuterol Nebulize [Duoneb 0.5 mg-3 mg/3 ml Soln] 3 ml INHALATION RT -QID ampul.neb 08/11/16 [Rx] Ipratropium/Albuterol Sulfate [Combivent Respimat Inhaler] 1 puff INHALATION RT- QID PRN #0 08/11/16 [Rx] Levofloxacin [Levaquin] 500 mg PO DAILY@1600 #7 tab 08/11/16 [Rx] Nicotine 21Mg/24Hr Patch [Habitrol] 1 patch TRANSDERM DAILY #14 patch 08/11/16 [ Rx] Nystatin 100,000 Unit/ml Susp [Mycostatin Oral Susp] 500,000 unit PO QID #120 cup 08/11/16 [Rx] Tiotropium 18 Mcg/Puff [Spiriva] 1 puff INHALATION RT-DAILY #30 inhaler [Rx] Follow up Appointment(s)/Referral(s): Moy Pina MD [Primary Care Provider] - 1-2 days Adeel Boo MD [STAFF PHYSICIAN] - 1 Week Patient Instructions/Handouts: COPD (Chronic Obstructive Pulmonary Disease) (DC ) Activity/Diet/Wound Care/Special Instructions: Darby [place] [phone] Discharge Disposition: HOME WITH HOME HEALTH SERVICES
== END 2016-08-11 17:00 | disposition home health service (06) | DRG 190 ==
LOC: EC 10:38 → 5MS5E 15:41 → 6SEL 08-07 18:40 → 4MS4W 08-10 14:06
PROVIDERS: ADMIT Internal Medicine; ATTEND Internal Medicine
DX: J44.0 Chronic obstructive pulmonary disease with (acute) lower respiratory infection (principal); J96.00 Acute respiratory failure, unspecified whether with hypoxia or hypercapnia; B37.9 Candidiasis, unspecified; E03.9 Hypothyroidism, unspecified; E78.5 Hyperlipidemia, unspecified; I11.9 Hypertensive heart disease without heart failure; F17.200 Nicotine dependence, unspecified, uncomplicated; J20.9 Acute bronchitis, unspecified; J44.1 Chronic obstructive pulmonary disease with (acute) exacerbation; G89.29 Other chronic pain; K21.9 Gastro-esophageal reflux disease without esophagitis; T38.0X5A Adverse effect of glucocorticoids and synthetic analogues, initial encounter; Z79.899 Other long term (current) drug therapy; Z82.49 Family history of ischemic heart disease and other diseases of the circulatory system; Z82.5 Family history of asthma and other chronic lower respiratory diseases; Z85.21 Personal history of malignant neoplasm of larynx; Z88.0 Allergy status to penicillin; Z92.3 Personal history of irradiation; Z88.2 Allergy status to sulfonamides; M54.5 Low back pain
CPT/HCPCS: 36415; 71010; 71020; 80048; 80053; 81001; 82550; 82553; 83735; 83880; 84100; 84484; 85025; 85027; 85379; 85610; 85730; 87040; 87502; 93005; 94640; 94660; 94760; 96374; 99291